=== PATIENT | female | born 1935 | race Caucasian/White ===

== ENCOUNTER 2019-02-07 15:17 | Inpatient (IN) | payer MEDICARE, MEDICAID ==
[~2019-02-07] VITALS: Ht 170.1 cm; Wt 72.6 kg
--- NOTE | ~2019-02-07 | EKG ---
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
--- NOTE | ~2019-02-07 | EKG ---
[place], [place] ELECTROCARDIOGRAM REPORT NAME: EVERT MITCHELL UNIT #: [id number] ROOM: 410 DOCTOR: KAM DRAFT REPORT BIRTHDATE: [birth year] [facility] Test Date: 2019-02-07 Test Time: 15:57:15 Pat Name: EVERT MITCHELL Department: Room: 410 Gender: F Roll Over Press Operator: : 1935 Requested By: GAURI GRIER Order Number: [id number] Reading MD: Aron Wright MD Measurements Intervals [place] Rate: 71 P: 27 SD: 184 QRS: -35 QRSD: 136 T: 56 QT: 459 QTc: 499 Interpretive Statements Sinus rhythm Nonspecific intraventricular conduction delay LAFB Electronically Signed On 02-08-2019 5:38:08 PDT by Aron Wright MD CM:EKGRPT:ELECTROCARDIOGRAM REPORT [id number] GAURI HUMPHREY DRAFT REPORT GAURI GRIER M.D.
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
[2019-02-07 15:20] VITALS: BP 169/89
[2019-02-07 16:00] LABS: BASO % 0.1 % (0.0-1.0); EOS # 0.1 10*3/uL (0.0-0.4); HEMATOCRIT 39.9 % (37.0-47.0); HEMOGLOBIN 13.3 g/dl (12.0-16.0); LYMPH # 2.2 10*3/uL (1.3-4.4); LYMPH % 25.7 % (27.0-41.0); MEAN CELL VOLUME 94.1 fl (81.0-99.0); MEAN CORPUSCULAR HGB 31.4 pg (27.0-31.0); MEAN CORPUSCULAR HGB CONC 33.3 g/dl (33.0-37.0); MEAN PLATELET VOLUME 8.9 fl (9.6-12.3); MONO # 0.8 10*3/uL (0.1-1.0); MONO % 8.6 % (3.0-9.0); NEUT # 5.6 10*3/uL (2.3-7.9); NEUT % 64.3 % (47.0-73.0); PLATELET COUNT AUTOMATED 242 10*3/uL (130-400); RED BLOOD COUNT 4.24 10*6/uL (4.10-5.10); RED CELL DISTRI WIDTH 12.9 % (0-14.5); WHITE BLOOD COUNT 8.7 10*3/uL (4.8-10.8)
[2019-02-07 16:18] LABS: ALBUMIN 3.3 gm/dl (3.1-4.5); ALKALINE PHOSPHATASE 76 U/L (45-117); BUN 13 mg/dl (7-24); CHLORIDE 103 mmol/L (98-107); CREATININE 0.69 mg/dL (0.55-1.02); POTASSIUM 4.2 mmol/L (3.5-5.1); SGOT/AST 7 IU/L (3-35); SGPT/ALT 14 U/L (12-78); SODIUM 136 mmol/L (136-145); TOTAL PROTEIN 6.9 gm/dL (6.4-8.2)
[2019-02-07 16:55] LABS: BILIRUBIN NEGATIVE (NEGATIVE); BLOOD TRACE-INTACT (NEGATIVE); CLARITY SL CLOUDY (CLEAR); COLOR YELLOW (YELLOW); GLUCOSE 2+ (NEGATIVE); KETONE NEGATIVE (NEGATIVE); LEUKO ESTERASE 2+ (NEGATIVE); NITRITE POSITIVE (NEGATIVE); SPECIFIC GRAVITY 1.015 (1.005-1.030); UROBILINOGEN 0.2 E.U./dl (0.2-1.0)
[2019-02-07 17:19] LABS: BACTERIA 2+; EPITHELIAL CELLS 0-2; RBC 0-2 rbc/hpf (0-2); WBC 51-100 wbc/hpf (0-5)
[2019-02-07 20:00] VITALS: BP 121/78
--- NOTE | 2019-02-07 20:06 | NUR ---
A 83, admitted to , under the services of KARLY Hadley DO with a diagnosis of UTI. Chief complaint is CHANGE IN MENTAL STATUS. Patient arrived via stretcher from ER. Monitor applied. Initial assessment completed. Vital signs taken and recorded. KARLY HADLEY DO notified of admission to the unit. Orders received. See assessment for past medical history, medications and allergies. Patient and/or family oriented to unit. [facility] visitation policy reviewed. Clothing/patient valuable form completed. NANCY GALLO
[2019-02-07 20:30] VITALS: BP 121/78
[2019-02-07] MEDS ORDERED: ASPIRIN ADULT L81 M1 PO (20:54)
[2019-02-07] MEDS ORDERED: ALENDRONATE SOD70 M1 PO (20:56)
[2019-02-07] MEDS ORDERED: METFORMIN HYDR500 MG PO (20:57)
[2019-02-07] MEDS ORDERED: Lopressor25 MG PO (20:57)
[2019-02-07] MEDS ORDERED: TRINTELLIX20 MG PO (21:00)
[2019-02-07] MEDS ORDERED: ZETIA10 MG PO (21:01)
[2019-02-07] MEDS ORDERED: EMERGEN-C 500500 MG PO (21:01)
--- NOTE | 2019-02-07 21:01 | NUR ---
[facility] AWARE OF CONSULT
[2019-02-07] MEDS ORDERED: RIVASTIGMINE T1.5 M1 PO (21:02)
[2019-02-07] MEDS ORDERED: KEPPRA500 MG PO (21:02)
[2019-02-07] MEDS ORDERED: HEALTHYLAX17 GM PO (21:03)
[2019-02-07] MEDS ORDERED: TYLENOL325 M1 PO (21:03)
[2019-02-07] MEDS ORDERED: ZANTAC 150150 MG PO (21:04)
[2019-02-07] MEDS ORDERED: HYDROXYZINE HCL25 MG PO (21:04)
--- NOTE | 2019-02-07 21:04 | NUR ---
DR FLOREZ'S ANSWERING SERVICE AWARE OF CONSULT
[2019-02-08] VITALS: BP 148/74
--- NOTE | 2019-02-08 02:23 | NUR ---
PATIENT PLACED IN RAFAL-CHAIR FOR MULTIPLE ATTEMPTS AT GETTING OUT OF BED
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
--- NOTE | 2019-02-08 04:10 | NUR ---
DR GIBBONS AWARE OF PATIENT'S INCREASED AGITATION. ORDERS FOR GEODON TAKEN
--- NOTE | 2019-02-08 06:06 | NUR ---
EVERT MITCHELL [id number] Please refer to the physician's history and physical for past medical history, comorbid conditions, and allergies. Diagnosis: UTI ABNORMAL EKG Ezequiel Score: 11,HIGH RISK WOUND DESCRIPTIONS: Wound Number: 1 Location of the wound: right posterior calf Thickness: Full Size: 1.1cm x 1.8cm x 0.1cm Tunneling: none Undermining: none Sinus Tract: none Presence of Exudate: Serosanguineous Amount: Light Color: Brown, yellow, red Odor: None Periwound Skin Appearance: Erythema Wound edges: approximated Pain (associated with wound): none at time of assessment How does patient state this happened? pt unable to state how this happened Surface the patient is resting on: Isoflex SKIN PREVENTION RECOMMENDATION: 1. Pressure redistribution support surface as appropriate 2. Elevate heels 3. Remove boots/TEDS every shift and reapply 4. Head of bed 30 degrees as tolerated 5. Assess nutrition and hydration 6. Manage moisture 7. Avoid the use of containment devices while in bed 8. Use absorptive products on surfaces limit layers of linens on bed 9. Turn and reposition every 1-2 hours in bed and every 1 hour in chair as tolerated 10. Weight shifts every 15 minutes while up in chair 11. Offloading with pillows or device to keep heels elevated off bed 12. Monitor skin at least every shift 13. Inspect under medical devices twice a day WOUND TREATMENT RECOMMENDATIONS: Venous and arterial studies of BLE's due to wound Consult podiatry for possible debridement if studies allow. Full thickness guidelines: Cleanse right posterior calf with nss and apply sureprep around the wound therahoney to wound bed and cover with optifoam gentle. Heel raiser pro boots to bilateral heels while in bed.
--- NOTE | 2019-02-08 06:09 | NUR ---
Upon discharge recommend patient to follow up for wound care in outpatient setting continue current wound care orders at discharging facility.
[2019-02-08 06:33] LABS: EOS # 0.1 10*3/uL (0.0-0.4); EOS % 0.9 % (1.0-4.0); HEMATOCRIT 39.8 % (37.0-47.0); HEMOGLOBIN 13.1 g/dl (12.0-16.0); LYMPH # 1.6 10*3/uL (1.3-4.4); LYMPH % 22.3 % (27.0-41.0); MEAN CELL VOLUME 94.3 fl (81.0-99.0); MEAN CORPUSCULAR HGB CONC 32.9 g/dl (33.0-37.0); MEAN PLATELET VOLUME 9.6 fl (9.6-12.3); MONO # 0.6 10*3/uL (0.1-1.0); MONO % 8.2 % (3.0-9.0); NEUT # 4.7 10*3/uL (2.3-7.9); NEUT % 68.3 % (47.0-73.0); PLATELET COUNT AUTOMATED 233 10*3/uL (130-400); RED BLOOD COUNT 4.22 10*6/uL (4.10-5.10); RED CELL DISTRI WIDTH 12.7 % (0-14.5); WHITE BLOOD COUNT 6.9 10*3/uL (4.8-10.8)
[2019-02-08 06:52] LABS: BUN 10 mg/dl (7-24); CHLORIDE 104 mmol/L (98-107); CREATININE 0.59 mg/dL (0.55-1.02); PHOSPHOROUS 2.9 mg/dL (2.5-4.9); POTASSIUM 3.6 mmol/L (3.5-5.1); SODIUM 139 mmol/L (136-145)
[2019-02-08 06:54] LABS: ACT PARTIAL THROMBO TIME 25.1 SECONDS (20.0-32.1)
--- NOTE | 2019-02-08 07:22 | NUR ---
Shift chart check completed.
[2019-02-08 08:00] VITALS: BP 136/70
--- NOTE | 2019-02-08 09:00 | NUR ---
case management visits with patient, patient is somewhat confused, per chart, she is a resident of [facility] and was admitted for medical clearance for U, case management/cyber intel planner will follow for any needs
--- NOTE | 2019-02-08 10:16 | NUR ---
Dr. Villegas notified of wound care recommendations.
[2019-02-08 12:00] VITALS: BP 149/59
--- NOTE | 2019-02-08 14:26 | NUR ---
Patient not appropriate at this time, 02/08/19, to be seen for an occupational therapy evaluation. Patient is drowsy per nursing. OT will follow up when appropriate. Thank you for the referral. Colleen Andrade OTR/L
--- NOTE | 2019-02-08 14:43 | NUR ---
PHYSICAL THERAPY Physical therapy evaluation attempted. Patient too drowsy to participate at this time. Nursing requests PT return at a later date. Thank you. Ami Griffiths,PT,DPT.
[2019-02-08 16:00] VITALS: BP 100/41
--- NOTE | 2019-02-08 18:09 | NUR ---
PT TO RADIOLOGY FOR ULTRASOUND
[2019-02-08 20:00] VITALS: BP 145/92
--- NOTE | 2019-02-08 22:47 | NUR ---
PATIENT IS SLEEPING WITH EASY AND REGULAR RESPERS ON ROOM AIR. AWAKENED EASILY FOR ASSESSMENT, ASSESSMENT IS COMPLETE WITH NO C/O OR S/S OF DISTRESS NOTED AT THIS TIME. BED IS LOW, LOCKED, ALARMED, AND CALL LIGHT IS WITHIN REACH. WILL CONTINUE TO MONITOR SEE SHIFT ASSESSMENT.
[2019-02-09] VITALS: BP 137/64
--- NOTE | 2019-02-09 03:51 | NUR ---
24 HR. CHART CHECK COMPLETE.
[2019-02-09 06:26] LABS: BUN 14 mg/dl (7-24); CHLORIDE 108 mmol/L (98-107); CREATININE 0.73 mg/dL (0.55-1.02); POTASSIUM 4.2 mmol/L (3.5-5.1); SODIUM 144 mmol/L (136-145)
[2019-02-09 06:32] LABS: EOS # 0.2 10*3/uL (0.0-0.4); EOS % 1.9 % (1.0-4.0); LYMPH # 2.4 10*3/uL (1.3-4.4); LYMPH % 29.7 % (27.0-41.0); MEAN CELL VOLUME 95.9 fl (81.0-99.0); MEAN CORPUSCULAR HGB 31.2 pg (27.0-31.0); MEAN CORPUSCULAR HGB CONC 32.5 g/dl (33.0-37.0); MEAN PLATELET VOLUME 9.7 fl (9.6-12.3); MONO # 0.6 10*3/uL (0.1-1.0); MONO % 7.8 % (3.0-9.0); NEUT # 4.8 10*3/uL (2.3-7.9); NEUT % 60.3 % (47.0-73.0); PLATELET COUNT AUTOMATED 240 10*3/uL (130-400); RED BLOOD COUNT 4.17 10*6/uL (4.10-5.10); RED CELL DISTRI WIDTH 13.2 % (0-14.5); WHITE BLOOD COUNT 7.9 10*3/uL (4.8-10.8)
--- NOTE | 2019-02-09 08:47 | NUR ---
Nikki WILDER notified of wound care recommendations.
--- NOTE | 2019-02-09 09:50 | NUR ---
Patient was seen for an occupational therapy evaluation this date, 02/09/19. Patient is a 83 y/o female admitted for UTI and change in mental status. Patient precautions include fall risk and decreased cognitive status. Patient to work on increasing ADLs, safety, cognition, and transfers. Patient would benefit from skilled OT treatment. Patient is a high eval- [id number]. OTR rec return to LTC with OT/PT services. Colleen Andrade, OTR/L
--- NOTE | 2019-02-09 09:51 | NUR ---
PHYSICAL THERAPY Physical therapy evaluation complete, 4E. Full evaluation/details to follow. Moderate evaluation (57278) per chart review and evaluation. PT to progress with bed mobility, sitting balance, and transfers per POC. Recommend return to long-term at discharge. Thank you. Ami Griffiths,PT,DPT.
--- NOTE | 2019-02-09 11:03 | NUR ---
Faxed updated clinicals to [facility] for review. Notified facility patient may not go to U if behaviors clear after UTI treatment. Patient is group home care and ok to return when medically stable for discharge.
--- NOTE | 2019-02-09 11:30 | NUR ---
Nutritional Support Services Note: Pt has a wound of back of right calf. Currently receiving an 1800cal diabetic diet with Glucerna po TID with meals. She is eating 100% of all meals. No other nutrition intervention needed at this time. Will follow. Jordyn Rosenthal Rdn Ld
[2019-02-09 12:00] VITALS: BP 131/74
[2019-02-09 16:00] VITALS: BP 130/72
[2019-02-09 16:02] LABS: VITAMIN D, 25-HYDROXY 26.5 ng/mL (30-100)
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
--- NOTE | 2019-02-09 19:40 | NUR ---
PHYSICIAN COMES TO FLOOR AND TALKS WITH PATIENT. PT STATES THAT SHE WOULD LIKE TO CALL HER SON RIO AND TALK TO HIM REGARDING HER HS MEDICATIONS. PT SON RIO IS CALLED BY NURSE AND TRANSFERRED TO PT PHONE IN ROOM. PT TALKS WITH SON AND AGITATION DECREASES AT THIS TIME. PT HS MEDICATIONS ARE EXPLAINED TO PT. PT STATES THAT SHE WILL TAKE HER MEDICATION NOW. WILL ATTEMPT TO MEDICATE PT. PT SITTING UP IN BED WITH NO S/S OF DISTRESS. RESPIRATIONS EASY AND UNLABORED. CALL LIGHT IN REACH.
[2019-02-09 20:00] VITALS: BP 157/65
--- NOTE | 2019-02-09 21:00 | NUR ---
PT AGREES TO TAKE HS MEDICATIONS BUT UPON TRYING TO TAKE MEDICATIONS, PT SPITS MEDICATIONS OUT ONTO FLOOR. PT STATES THAT SHE DOES NOT WANT TO TRY TO TAKE MEDICATIONS AGAIN AT THIS TIME. WILL ATTEMPT AT A DIFFERENT TIME. PT IS COOPERATIVE WITH STAFF AT THIS TIME AND HAS NO OTHER S/S OF DISTRESS. HOB ELEVATED. BREAKS LOCKED ON BED, CALL LIGHT IN REACH.
--- NOTE | 2019-02-09 22:30 | NUR ---
PT BLOOD SUGAR OBTAINED PER EMAR ORDER. BLOOD SUGAR IS 229. PT REQUIRES 3 UNITS COVERAGE BUT IS REFUSING INSULIN INJECTION AT THIS TIME. WILL CONTINUE TO MONITOR AND NOTIFY PHYSICIAN. CALL LIGHT IN REACH. PT RESTING IN BED
[2019-02-10] VITALS: BP 154/72
--- NOTE | 2019-02-10 06:29 | NUR ---
24 HR chart check completed.
[2019-02-10 08:58] VITALS: BP 122/84
--- NOTE | 2019-02-10 09:00 | NUR ---
SITTING UP IN CHAIR. DROWSY. ALERT TO PERSON ONLY. FINE RALES HEARD IN RIGHT POSTERIOR BASE. REMAINS ON ROOM AIR. MURMUR HEARD.
[2019-02-10 12:00] VITALS: BP 141/76
[2019-02-10 15:36] VITALS: BP 141/57
[2019-02-10 20:00] VITALS: BP 141/70
--- NOTE | 2019-02-10 22:30 | NUR ---
PT RESTING IN BED, EASILY AROUSED. ASSESSMENT COMPLETE AT THIS TIME. HS MEDICATIONS REFUSED BY PT AFTER SEVERAL ATTEMPTS. BLOOD SUGAR OBTAINED-256 AND COVERAGE GIVEN ORDERED, SEE EMAR. PT RESPIRATIONS EASY AND UNLABORED ON ROOM AIR. NO S/S OF DISTRESS. BP WNL. WILL CONITNUE TO MONITOR PT. ALL SAFETY MEASURES IN PLACE. CALL LIGHT IN REACH.
[2019-02-10 23:00] VITALS: BP 122/62
[2019-02-11] VITALS: BP 146/90
--- NOTE | 2019-02-11 04:18 | NUR ---
24 HR chart check completed.
[2019-02-11 08:00] VITALS: BP 161/64
--- NOTE | 2019-02-11 10:00 | NUR ---
[facility] NOTIFIED OF CONSULT
[2019-02-11 12:00] VITALS: BP 155/88
--- NOTE | 2019-02-11 13:00 | NUR ---
DR. ESPINOZA HERE TO SEE PATIENT ON CONSULT.
--- NOTE | 2019-02-11 15:00 | NUR ---
DR. FRANKLIN NOTIFIED THAT DR. ESPINOZA SAID THAT PATIENT CAN GO TO [facility] ONCE MEDICALLY STABLE.
[2019-02-11 16:00] VITALS: BP 146/58
[2019-02-11 20:00] VITALS: BP 144/66; BP 150/83
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
[2019-02-12] VITALS: BP 140/72
--- NOTE | 2019-02-12 03:44 | NUR ---
24 HR chart check completed.
[2019-02-12 06:41] LABS: BASO % 0.1 % (0.0-1.0); EOS # 0.1 10*3/uL (0.0-0.4); EOS % 1.5 % (1.0-4.0); HEMOGLOBIN 13.6 g/dl (12.0-16.0); LYMPH # 2.5 10*3/uL (1.3-4.4); LYMPH % 30.6 % (27.0-41.0); MEAN CELL VOLUME 96.1 fl (81.0-99.0); MEAN CORPUSCULAR HGB 31.1 pg (27.0-31.0); MEAN CORPUSCULAR HGB CONC 32.4 g/dl (33.0-37.0); MEAN PLATELET VOLUME 9.5 fl (9.6-12.3); MONO # 0.6 10*3/uL (0.1-1.0); MONO % 6.9 % (3.0-9.0); NEUT # 4.8 10*3/uL (2.3-7.9); NEUT % 60.5 % (47.0-73.0); PLATELET COUNT AUTOMATED 248 10*3/uL (130-400); RED BLOOD COUNT 4.37 10*6/uL (4.10-5.10); RED CELL DISTRI WIDTH 12.9 % (0-14.5)
[2019-02-12 06:53] LABS: CREATININE 0.66 mg/dL (0.55-1.02)
[2019-02-12 08:00] VITALS: BP 138/72
[2019-02-12] MEDS ORDERED: CEFUROXIME AXE500 MG PO (09:21)
--- NOTE | 2019-02-12 10:50 | NUR ---
PHYSICAL THERAPY Patient seen this am 1;1 for therapy visit and was resting supine in bed, with her present upon therapist arrival. Patient voices no c/o's pain and was very pleasant this morning. Patient transfers supine to sit EOB with MOD A, tolerating static EOB sit, CGA, x 5 minutes. Patient demonstrated increased fatigue which contributed to several bouts of retrograde posture prior to completing sit to stand transfer, CASINO CASHIER MANAGER/Min. Patient able to ambulate 5-6 steps, then performed SPT to bedside Rody chair and remained in chair with lap tray, call light, and body alarm for safety. Will continue per POC as tolerated, total treatment time 13 minutes. Thony Giles, FIBER WORKER
--- NOTE | 2019-02-12 11:09 | NUR ---
Notified Saumya garcia [employer] that patient is discharged to U.
--- NOTE | 2019-02-12 11:09 | NUR ---
Pt was seen for approx 15 minutes in OT beginning a with grooming task with set up while sitting at EOB with supervision. Fair minus sit balance noted. After grooming, sit to stand & transfer to mary-chair required Min A x 2. present during therapy session. Continue with OT POC. Alma SPANN
[2019-02-12 12:00] VITALS: BP 151/60
[2019-02-12] MEDS ORDERED: TYLENOL325 M1 PO (13:35)
--- NOTE | 2019-02-12 14:38 | NUR ---
DISCHARGED TO [facility] HERE.
--- NOTE | 2019-02-13 08:31 | NUR ---
OCCUPATIONAL THERAPY CO-SIGN I approve of the Occupational Therapy notes written above. ELLEN HENDRICKS OTR/Rachael
== END 2019-02-12 14:42 | disposition home health service (06) | DRG 690 ==
LOC: ED 15:17 → EDHOLD 19:03 → 4E 19:03
PROVIDERS: Emergency Medicine; Internal Medicine; Student in an Organized Health Care Education/Training Program; ADMIT Internal Medicine
DX: N39.0 Urinary tract infection, site not specified (principal); G93.49 Other encephalopathy; I25.810 Atherosclerosis of coronary artery bypass graft(s) without angina pectoris; F01.51 Vascular dementia, unspecified severity, with behavioral disturbance; G40.209 Localization-related (focal) (partial) symptomatic epilepsy and epileptic syndromes with complex partial seizures, not intractable, without status epilepticus; I45.2 Bifascicular block; I35.0 Nonrheumatic aortic (valve) stenosis; Z66 Do not resuscitate; Z51.5 Encounter for palliative care; D72.810 Lymphocytopenia; I10 Essential (primary) hypertension; E11.65 Type 2 diabetes mellitus with hyperglycemia; K59.00 Constipation, unspecified; M54.5 Low back pain; B96.20 Unspecified Escherichia coli [E. coli] as the cause of diseases classified elsewhere; G89.29 Other chronic pain; M48.00 Spinal stenosis, site unspecified; Z88.8 Allergy status to other drugs, medicaments and biological substances; Z91.040 Latex allergy status; I25.2 Old myocardial infarction; Z95.1 Presence of aortocoronary bypass graft; Z95.0 Presence of cardiac pacemaker; Z90.710 Acquired absence of both cervix and uterus; Z90.79 Acquired absence of other genital organ(s); Z90.722 Acquired absence of ovaries, bilateral; Z84.89 Family history of other specified conditions; Z79.82 Long term (current) use of aspirin; Z79.899 Other long term (current) drug therapy; Z79.84 Long term (current) use of oral hypoglycemic drugs

== ENCOUNTER 2019-02-12 09:44 | Inpatient (IN) | payer MEDICARE, MEDICAID ==
[~2019-02-12] VITALS: Ht 170.1 cm; Wt 68.0 kg
[~2019-02-12 09:44] MED LIST: ALENDRONATE SOD70 M1 PO; ASPIRIN ADULT L81 M1 PO; CEFUROXIME AXE500 MG PO; EMERGEN-C 500500 MG PO; HEALTHYLAX17 GM PO; HYDROXYZINE HCL25 MG PO; KEPPRA500 MG PO; Lopressor25 MG PO; METFORMIN HYDR500 MG PO; RIVASTIGMINE T1.5 M1 PO; TRINTELLIX20 MG PO; TYLENOL325 M1 PO; ZANTAC 150150 MG PO; ZETIA10 MG PO
[2019-02-12] MEDS ORDERED: TYLENOL325 M1 PO (13:35)
[2019-02-12 14:52] VITALS: BP 143/63
--- NOTE | 2019-02-12 15:07 | NUR ---
PHYSICAL THERAPY Nursing screen received and chart reviewed. Recommend continued skilled PT services when medically appropriate. Thank you. Ami Griffiths,PT,DPT.
[2019-02-12 15:53] VITALS: BP 143/63
--- NOTE | 2019-02-12 17:37 | NUR ---
EVERT MITCHELL a 83 year old F admitted via wheel chair from the ADMITTING as a voluntary admission. Arrived on unit at 1445. ALLERGIES: DEPAKOTE, LATEX, NAMENDA, ABCIXIMAB. Vital signs are: 97.2-65-14 143/63. The client signed consent for admission. Pt too tired to sign other paperwork. Will attempt at another time. Pt does not want to complete skin assessment at this time. Pt was medicated with vistaril prior to admission. [facility] A search was conducted and hazardous articles were removed. Client was oriented to the unit. KEN RHODES
[2019-02-12 20:00] VITALS: BP 128/86
--- NOTE | 2019-02-12 20:48 | NUR ---
DR GIBBONS NOTIFIED MEDICAL MEDS NEED REORDERED. WILL DO NOW.
--- NOTE | 2019-02-12 22:52 | NUR ---
P--CONFUSION/ DIFFICULTY PROCESSING REQUESTS I--ORIENTED TO PLACE AND TIME. REVIEWED MEDICATIONS AND WHAT THEY WHERE FOR. CLIENT INTERESTED AT FIRST THEN DEVELOOPED A GLAZED LOOK OF NON COMPREHENSION. MEDICATED PER ORDERS WITH MUCH ENCOURAGEMENT. DAYLIGHT ORDERED A SPEECH CONSULT DUE TO POOR SWOLLOWING ABILITY R--HI I AM EVERT. IT IS 1953 AND JEETSYLVIA IS PRESIDENT. OH ITS 2019. TOOK TWO SPOONFULD OF APPLSAUCE WITH MEDICATION BUT THE LAST 3 WERE VERY DIFFICULT FOR HER TO SWOLLOW. HOLDING IN HER MOUTH EVEN WITH INSTRUCTIONS TO SWOLLOW AND APPEARS SHE IS UNABLE TO COMPREHEND COMMANDS. SWOLLOWED AFTER A FEW MINUTES P-PASS ON TO MONITOR FOOD INTAKE. CONTINUE ORIENTATION, EMOTIONAL SUPPORT AND MONITOR FOR SAFETY
--- NOTE | 2019-02-13 04:45 | NUR ---
24 HR chart check completed.
--- NOTE | 2019-02-13 05:40 | NUR ---
COMPLETE SHOWER DONE. CLIENT SLEPT APPROX 8 HOURS MINIMAL INTERUPTION.
--- NOTE | 2019-02-13 05:41 | NUR ---
EVERT MITCHELL Ester [id number] Please refer to the physician's history and physical for past medical history, comorbid conditions, and allergies. Diagnosis: INTERMITTENT EXPLOSIVE DISORDER Ezequiel Score: 15,AT RISK WOUND DESCRIPTIONS: Wound Number: 1 Location of the wound: right posterior calf Thickness: Full Size: 1.1cm x 1.8cm x 0.1cm Tunneling: none Undermining: none Sinus Tract: none Presence of Exudate: none Amount: none Color: Brown, red Odor: None Periwound Skin Appearance: Erythema Wound edges: approximated Pain (associated with wound): none at time of assessment How does patient state this happened? pt unable to state how this happened Surface the patient is resting on: Proform SKIN PREVENTION RECOMMENDATION: 1. Pressure redistribution support surface as appropriate 2. Elevate heels 3. Remove boots/TEDS every shift and reapply 4. Head of bed 30 degrees as tolerated 5. Assess nutrition and hydration 6. Manage moisture 7. Avoid the use of containment devices while in bed 8. Use absorptive products on surfaces limit layers of linens on bed 9. Turn and reposition every 1-2 hours in bed and every 1 hour in chair as tolerated 10. Weight shifts every 15 minutes while up in chair 11. Offloading with pillows or device to keep heels elevated off bed 12. Monitor skin at least every shift 13. Inspect under medical devices twice a day WOUND TREATMENT RECOMMENDATIONS: May need vascular follow up due to results on 02/12/19. Continue full thickness guidelines to right posterior calf. Heel raiser pro boots while in bed to bilateral feet.
[2019-02-13 07:10] LABS: EOS # 0.2 10*3/uL (0.0-0.4); EOS % 2.3 % (1.0-4.0); HEMATOCRIT 44.7 % (37.0-47.0); HEMOGLOBIN 14.6 g/dl (12.0-16.0); LYMPH # 2.2 10*3/uL (1.3-4.4); LYMPH % 31.3 % (27.0-41.0); MEAN CELL VOLUME 95.9 fl (81.0-99.0); MEAN CORPUSCULAR HGB 31.3 pg (27.0-31.0); MEAN CORPUSCULAR HGB CONC 32.7 g/dl (33.0-37.0); MEAN PLATELET VOLUME 9.2 fl (9.6-12.3); MONO # 0.6 10*3/uL (0.1-1.0); MONO % 8.5 % (3.0-9.0); NEUT % 57.6 % (47.0-73.0); PLATELET COUNT AUTOMATED 258 10*3/uL (130-400); RED BLOOD COUNT 4.66 10*6/uL (4.10-5.10); WHITE BLOOD COUNT 6.9 10*3/uL (4.8-10.8)
[2019-02-13 07:55] VITALS: BP 149/60
--- NOTE | 2019-02-13 07:58 | NUR ---
PHYSICAL THERAPY CO-SIGN I approve of the Physical Therapy notes written above. CLOTILDE MYERS PT,DPT
--- NOTE | 2019-02-13 08:00 | NUR ---
Treatment Plan meeting with Dr. Oconnor, RN, AT, SW and Alpine Patroller. Plan for discharge next week. Pt. will return to [facility]. Clinical Updates faxed to [place].
[2019-02-13 08:06] LABS: VITAMIN D, 25-HYDROXY 21.6 ng/mL (30-100)
--- NOTE | 2019-02-13 08:44 | NUR ---
Nursing screen and occupational therapy referral received. Thank you. Leena Nguyễn OTR/L
--- NOTE | 2019-02-13 09:15 | NUR ---
SPEECH PATHOLOGY Clinical swallowing evaluation completed as per orders due to difficulty swallowing. Patient was transferred to [facility] from medical floor with intermittent explosive disorder. Medical history includes UTI, CAD, DM, HTN, NH, vascular dementia and complex partial seizure disorder. Patient receives a regular diet and thin liquids and has been observed holding foods and spitting out foods and medications. She was seen for assessment during breakfast meal. She was sitting upright in a chair in activity room with peers. Patient was alert and cooperative, answering simple questions appropriately. She fed herself and ate a variety of solid foods and liquids. She consumed 100% of breakfast and was asking for more food. She displayed no overt difficulty during the meal. Recommend she remain on present diet. Short term follow up will be conducted, likely one visit, to ensure safe tolerance of diet as status may be different throughout the day. Results and elsa. were shared with patient's nurse who verbalized understanding. Refer to report in [employer] for further information. Thank you for this referral. JULIO FOREMAN MSCCC-SAFETY AND SKILL BASED PAY MANAGER
--- NOTE | 2019-02-13 10:06 | NUR ---
Dr. Hansen notified of wound care recommendations.
[2019-02-13 10:28] LABS: ALBUMIN 3.4 gm/dl (3.1-4.5); ALKALINE PHOSPHATASE 73 U/L (45-117); BUN 13 mg/dl (7-24); CHLORIDE 105 mmol/L (98-107); CHOLESTEROL 184 mg/dL (<200); CREATININE 0.76 mg/dL (0.55-1.02); HDL CHOLESTEROL 62 mg/dl (40-60); LDL CHOLESTEROL 107 mg/dL (9-159); POTASSIUM 4.1 mmol/L (3.5-5.1); SGOT/AST 11 IU/L (3-35); SGPT/ALT 17 U/L (12-78); SODIUM 140 mmol/L (136-145); TOTAL PROTEIN 7.3 gm/dL (6.4-8.2); TRIGLYCERIDES 74 mg/dl (<150); VLDL CHOLESTEROL 15 mg/dL (6-40)
--- NOTE | 2019-02-13 11:46 | NUR ---
AM GROUP PT WAS PRESENT FOR MORNING GROUP THERAPY BUT DID NOT PARTICIPATE. PT WAS RECLINED IN A RAFAL CHAIR SLEEPING.
--- NOTE | 2019-02-13 14:32 | NUR ---
Nutritional Support Services Note: Pt has a wound noted to right calf. She receives an 1800cal diabetic diet with Glucerna OS po TID with meals. Staff to encourage intake of all meals and supplements. No other nutrition intervention needed at this time. Will follow as needed. Jordyn Rosenthal Rdn Ld
--- NOTE | 2019-02-13 15:23 | NUR ---
PHYSICAL THERAPY Physical therapy evaluation complete, 3N. Please see evaluation for full details. Moderate complexity evaluation (15905) per chart review and evaluation. PT to progress with bed mobility, transfers, gait per POC. Recommend return to nursing facility at discharge. Thank you. Ami Griffiths,PT,DPT.
--- NOTE | 2019-02-13 15:25 | NUR ---
Occupational Therapy evaluation completed on 3 with full eval to follow. PRecautions include fall risk, reclining mary chair use, impaired cognition with difficulty following complex commands and MMT instructions,assistance w/ all ADLs, +2 mod/max sit to stand assist, moderate complexity level 54420 via chart review, testing and evaluation. Recommend OT per pOC and return to LTC upon d/c. Thank you. Leena Nguyễn OTR/L
--- NOTE | 2019-02-13 15:39 | NUR ---
PM GROUP/LEISURE INTERESTS PT ATTENDED AFTERNOON GROUP THERAPY AND PARTICIPATED BY READING THE NEWSPAPER AND SOCIALIZING WITH PEERS. PT EXHIBITED NO AGITATION OR AGGRESSION DURING GROUP.
--- NOTE | 2019-02-13 17:31 | NUR ---
P: PT REFUSED PART OF AM PO MEDS, TOOK TWO BITES AND REFUSED THE REST. PT REFUSED LUNCH. PT IRRITABLE WITH STAFF AT TIMES. I: PROVIDE EMOTIONAL SUPPORT AND 1:1 FOR PT TO VOICE FEELINGS, ENCOURAGE MED COMPLIANCE, ENCOURAGE PO INTAKE R: PT CONTINUED TO REFUSE LUNCH AND PO AM MEDS. PT ALERT TO PERSON ONLY, THINKS SHE IS AT THE [facility] AND THE YEAR IS 1952. PT CALM, MOOD IS STABLE. NO HALLUCINATIONS NOTED. PT DENIES ANY SUICIDAL THOUGHTS. [facility] REQU[facility] 2 STAFF ASSIST FOR AMBULATION. PT CONTINENT OF BOWEL AND BLADDER, EPISODES OF INCONTINENCE NOTED, CARE PROVIDED NEEDED.
[2019-02-13 19:25] VITALS: BP 142/66
--- NOTE | 2019-02-13 21:27 | NUR ---
PT TOOK MEDICATION THEN SPIT IT ALL OVER HERSELF. SHE SAID YOU CAN'T FORCE ME TO TAKE THOSE MEDICATIONS. I INFORMED HER I WOULDN'T FORCE HER BUT SHE OPENED HER MOUTH AND TOOK THE PUDDING WITH MEDICATION. SHE SAID THAT IS CONSIDERED FORCE. SHE SAYS SHE DOESN'T WANT ANY MEDICINE ANYMORE.
--- NOTE | 2019-02-13 21:37 | NUR ---
TAKING TO HER ROOM TO GET READY FOR BED SHE IS DISROBING IN DININGROOM. REDIRECTED THAT THERE ARE OTHERS HERE AND SHE DOESN'T WANT THEM TO SEE HER NAKED. SHE REPLIED WELL WHAT IF I DO.
--- NOTE | 2019-02-13 22:08 | NUR ---
REFUSED ALL PM CARE INCLUDING ORAL CARE.
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
--- NOTE | 2019-02-14 00:28 | NUR ---
SLEEPING IN CHAIR. WRAPPED WITH BLANKET AND PILLOW UNDER HEAD, RESP EASY NON LABORED. MOVING SELF AROUND
--- NOTE | 2019-02-14 03:53 | NUR ---
Upon discharge recommend patient to follow up for wound care in outpatient setting continue current wound care orders at discharging facility.
--- NOTE | 2019-02-14 04:11 | NUR ---
HAS SLEPT WELL PAST 2355AM.
[2019-02-14 07:37] VITALS: BP 115/92
--- NOTE | 2019-02-14 10:00 | NUR ---
Treatment Plan meeting with RN, SW and Six Sigma Black Trainer. Plan for discharge Next week. Pt. will return to [facility].
--- NOTE | 2019-02-14 10:41 | NUR ---
Spoke with Saumya Souza at [facility]. Notified of plans to discharge next week. Clinical Updates faxed to Facility [phone].
--- NOTE | 2019-02-14 11:35 | NUR ---
2ND RN APPRAOCHED PT ROOM TO CHECK BLOOD SUGAR, NOTIFIFED THIS NURSE THAT PT WAS VOMITING AND LAYING FLAT ON HER BACK, THIS NURSE RESPONDED OBSERVED PT TO HAVE VOMITED YELLOW, FOUL SMELLING LIQUID. ASSISTED PT INTO SITTING POSITION WITH HOB ELEVATED. VS [id number], BS 163. ZULMA POSADAS ON UNIT AT 1143, TO ASSESS PT, PER ZULMA SHE WILL PLACE ORDERS. CALLED ZULMA AT 1148 ADVISED THAT PT IS CONTINUING TO VOMIT YELLOW FOULD SMELLING LIQUID. 1151 STAFF NOTIFIED THIS NURSE THAT PT HAD LARGE LOOSE BM.
--- NOTE | 2019-02-14 11:36 | NUR ---
AM GROUP/REMINISCING PT DID NOT ATTEND MORNING GROUP THERAPY. PT WAS IN BED RESTING.
--- NOTE | 2019-02-14 12:04 | NUR ---
UPDATED ZULMA HAYES ON PT HAVING MASSIVE WATERY BROWN BM. PER ZULMA GET A STOOL SAMPLE. NO FURTHER ORDERS AT THIS TIME.
--- NOTE | 2019-02-14 12:07 | NUR ---
LAB AND XRAY ON UNIT FOR PT.
--- NOTE | 2019-02-14 12:08 | NUR ---
EKG ON UNIT.
[2019-02-14 12:29] LABS: EOS # 0.1 10*3/uL (0.0-0.4); EOS % 1.3 % (1.0-4.0); HEMATOCRIT 43.5 % (37.0-47.0); HEMOGLOBIN 13.9 g/dl (12.0-16.0); LYMPH # 1.9 10*3/uL (1.3-4.4); MEAN CELL VOLUME 96.5 fl (81.0-99.0); MEAN CORPUSCULAR HGB 30.8 pg (27.0-31.0); MEAN PLATELET VOLUME 9.2 fl (9.6-12.3); MONO # 0.5 10*3/uL (0.1-1.0); MONO % 5.4 % (3.0-9.0); NEUT # 6.4 10*3/uL (2.3-7.9); PLATELET COUNT AUTOMATED 246 10*3/uL (130-400); RED BLOOD COUNT 4.51 10*6/uL (4.10-5.10); RED CELL DISTRI WIDTH 13.1 % (0-14.5); WHITE BLOOD COUNT 8.9 10*3/uL (4.8-10.8)
--- NOTE | 2019-02-14 12:29 | NUR ---
HENRRY INEFEFCTIVE, PT CONTINUES TO VOMIT.
--- NOTE | 2019-02-14 12:34 | NUR ---
ZULMA HAYES RETURNED CALLED, AWAITING LABS AND CHEST XRAY RESULTS AT THIS TIME.
[2019-02-14 12:39] LABS: ALBUMIN 3.5 gm/dl (3.1-4.5); ALKALINE PHOSPHATASE 70 U/L (45-117); BUN 14 mg/dl (7-24); CHLORIDE 105 mmol/L (98-107); CREATININE 0.64 mg/dL (0.55-1.02); POTASSIUM 4.1 mmol/L (3.5-5.1); SGOT/AST 15 IU/L (3-35); SGPT/ALT 19 U/L (12-78); SODIUM 138 mmol/L (136-145); TOTAL PROTEIN 7.2 gm/dL (6.4-8.2)
[2019-02-14 12:41] LABS: TROPONIN I < 0.015 ng/ml (<0.045)
--- NOTE | 2019-02-14 12:45 | NUR ---
UPDATED ZULMA WILDER ON CHEST XRAY RESULTS AND LAB RESULTS, NO FURTHER ORDERS AT THIS TIME, WILL RE-EVALUATE AND CONTINUE TO MONITOR.
--- NOTE | 2019-02-14 13:02 | NUR ---
OT NOTE Attempted to see pt this P.M. for OT session and upon arrival nursing requested to let pt rest at this time due to vomitting. Will continue with POC as able. DOM Spivey/Rachael
--- NOTE | 2019-02-14 13:08 | NUR ---
CALLED [facility] CELL PHONE NUMBERS, NO ANSWER, SPOKE WITH SARMAD JENKINS AT EXT 2020, HE WILL LET RT KNOW OF THE DUONED ORDER.
--- NOTE | 2019-02-14 13:21 | NUR ---
SPEECH PATHOLOGY Nursing requested to withhold treatment this date. Patient is ill and in bed. Will attempt again tomorrow as appropriate. JULIO FOREMAN MS CCC-CLIENT ADVOCATE
--- NOTE | 2019-02-14 13:35 | NUR ---
SARMAD JENKINS FROM [facility] ON UNIT FOR PT BREATHING TREATMENT.
[2019-02-14 14:12] VITALS: BP 133/80
--- NOTE | 2019-02-14 15:13 | NUR ---
case management received a call from [employer], inpatient u stay is approved 10 days with next review 02/21/19, approval number is [id number]
--- NOTE | 2019-02-14 15:20 | NUR ---
ZULMA HAYES ON UNIT TO ASSESS PT, UPDATE PROVIDED RE: RECENT TROPININ LEVELS. NO FURTHER ORDERS AT THIS TIME.
--- NOTE | 2019-02-14 15:35 | NUR ---
PM GROUP/LEISURE INTERESTS PT IS UNABLE TO ATTEND GROUP THERAPY AT THIS TIME.
--- NOTE | 2019-02-14 15:48 | NUR ---
NO ADVERSE MOODS OR BEHAVIORS NOTED THIS SHIFT. PT ALERT TO PERSON ONLY, CONFUSION AND SHORT TERM MEMORY DEFICITS NOTED PER PT BASELINE. PT CALM. NO FURTHER EMESIS OR DIARRHEA NOTED AT THIS TIME. PT MED COMPLIANT THIS AM WITH MINIMAL DIFFICULTY. PT UP TO A GERICHAIR. PT INCONTINENT OF BOWEL AND BLADDER. PLAN IS TO CONTINUE TO MONITOR PT BEHAVIORS ON Q15 MIN SAFETY CHECKS, ENCOURAGE MED COMPLIANCE, PROVIDE EMOTIONAL SUPPORT AND 1:1, MONITOR VITAL SIGNS [id number] PER ORDERS.
[2019-02-14 19:51] VITALS: BP 121/59
[2019-02-15 02:00] VITALS: BP 137/69
--- NOTE | 2019-02-15 03:33 | NUR ---
NO ADVERSE MOODS OR BEHAVIORS NOTED. MOOD HOPELESS/HELPLESS. PT ALERT TO PERSON ONLY, CONFUSED IN ALL OTHER AREAS. PT CALM, SLEEPING SINCE BEGINNING OF SHIFT, EASILY AROUSABLE DURING INTERACTIONS. NO FURTHER EMESIS OR DIARRHEA NOTED AT THIS TIME. PT MEDICATION NONCOMPLIANT DUE TO SLEEPING DURING HS PASS, UNABLE TO EDUCATE DUE TO COGNITION. PT UP TO A GERICHAIR, REPOSITIONED Q 2 HOURS.NO PHYSICAL COMPLAINTS VOICED. PT INCONTINENT OF BOWEL AND BLADDER. RESPIRATIONS EASY AND REGULAR ON ROOM AIR, BREATHING TREATMENTS CONTINUED ORDERED. PLAN IS TO CONTINUE TO MONITOR PT BEHAVIORS ON Q15 MIN SAFETY CHECKS, ENCOURAGE MED COMPLIANCE, PROVIDE EMOTIONAL SUPPORT AND 1:1, MONITOR VITAL SIGNS Q6 HOURS PER ORDERS.
--- NOTE | 2019-02-15 05:49 | NUR ---
24 HOUR CHART CHECK COMPLETED.
--- NOTE | 2019-02-15 05:56 | NUR ---
PATIENT OBSERVED ON Q 15 MIN CHECKS TO HAVE SLEPT APPROX 8 HOURS INTERRUPTED WITH MULTIPLE BRIEF AWAKENINGS NOTED. NO SIGNS OR SYMPTOMS OF DISTRESS NOTED.
--- NOTE | 2019-02-15 07:55 | NUR ---
OT NOTE Pt was seen this A.M. 1:1 for 20 minute OT session with nursing staff present for observation only. Upon arrival pt was sitting semi reclined in the mary chair in the dining room. Pt identified by name and on wristband. Pt's breakfast tray arrived which she was sat upright in the mary chair with lap tray in place. Pt required maxA for set up of tray due to being unable to cut her food and open containers. After set up pt completed self feeding using a fork and managed all cups with straws with SBA. Pt was left sitting upright in the mary chair in the dining room with body alarm on for safety, under U staff supervision, and with lap tray on. Continue with rec D/C plan to return to LTC. DOM Spivey/Rachael
[2019-02-15 08:02] VITALS: BP 143/76
--- NOTE | 2019-02-15 08:09 | NUR ---
SPEECH PATHOLOGY Patient was seen for treatment this am during breakfast meal. Patient was sitting upright in activity room with peers. She was feeding herself without difficulty. She displayed good use of safety precautions such as slow intake and small bites and sips. Patient displayed no overt difficulty with any item. Her intake was good. As she is tolerating regular diet, using strategies and recommended to remain on regular diet and thin liquid, continued dysphagia therapy is no longer warranted. Patient will be discharged at this time. Thank you for this referall. It has been a pleasure taking part in this patient's care. JULIO FOREMAN MSCCC-SALES OFFICE ADMINISTRATOR
--- NOTE | 2019-02-15 08:15 | NUR ---
Treatment Plan meeting held with Dr. Oconnor, RN, AT, SW and Sound Effects Person. Plan remains for discharge next week with return to [place].
--- NOTE | 2019-02-15 08:36 | NUR ---
Patient resting quietly with no c/o discomfort. Respirations easy and regular. Vital signs stable. No overt distress. PHIL YOUSSEF
--- NOTE | 2019-02-15 11:41 | NUR ---
Late Entry: Met with pt's and son yesterday during afternoon visitation. Pt was also present but was sleeping in the mary-chair. Discussed pt's current status. Answered questions from pt's family regarding course of care. Discussed progression of illness. Confirmed discharge plan of pt returning to [facility].
--- NOTE | 2019-02-15 11:43 | NUR ---
AM GROUP/LESSONS FROM A TREE PT WAS PRESENT FOR MORNING GROUP THERAPY HAVING JUST RETURNED FROM TESTING. PT DID NOT PARTICIPATE IN GROUP. PT WAS RECLINED IN A RAFAL CHAIR SLEEPING.
[2019-02-15 14:00] VITALS: BP 126/54
--- NOTE | 2019-02-15 15:38 | NUR ---
PM GROUP/TREES CONTINUED PT WAS PRESENT FOR AFTERNOON GROUP THERAPY BUT DID NOT PARTICIPATE. PT WAS RECLINED IN A RAFAL CHAIR AND SLEPT MOST OF THE TIME
[2019-02-16 02:00] VITALS: BP 110/62
--- NOTE | 2019-02-16 02:42 | NUR ---
P-PATIENT ALERT AND ORIENTED TO SELF, CONFUSED IN ALL OTHER AREAS. ST/LT DEFICITS NOTED. MOOD LABILE, HOPELESS/HELPLESS. PT CALM WITH UNDERLYING IRRITABILITY, REFUSED 2000 BP VITAL CHECK AND BSG AFTER X2 ATTEMPTS, GESTURES TOWARDS STAFF WITH FISTS AND STATES TO LEAVE HER ALONE. PT ALSO REFUSED HS MEDICATIONS AFTER X3 ATTEMPTS, PT SPIT THEM OUT IN HER BLANKET. PT'S APPEITTE CONTINUES TO BE POOR THIS SHIFT DESPITE ENCOURAGEMENT. I-PATIENT REORIENTED TO REALITY AND REDIRECTED. PROVIDED WITH 1:1 FOR VENTILATION OF FEELINGS WITH EMOTIONAL SUPPORT NEEDED. ENCOURAGED MEDICATION COMPLIANCE AND EDUCATED. REITERATED IMPORTANCE OF FLUID AND FOOD INTAKE AND CONTINUE TO ENCOURAGE PT. R- PATIENT UNRECEPTIVE TO THERAPUETIC INTERVENTIONS AND MEDICATION EDUCATION WHEN PRESENTED DUE TO COGNITION, ALL NEEDS ANTICIPATED BY STAFF, INCONTINENT CARE PROVIDED WITHOUT DIFFICULTY. FLUID AND FOOD INTAKE REMAINS POOR, PT STATED SHE DOES NOT WANT TO EAT OR DRINK ANYTHING BECAUSE SHE WILL GET FAT, UNABLE TO BE REDIRECTED. VITALS RECHECKED AT O200 ORDERED, NO COMBATIVE BEHAVIOR NOTED. NO PHYSICAL COMPLAINTS VOICED. PT CURRENTLY LAYING DOWN WITH EYES CLOSED, RESPIRATIONS EASY AND REGULAR, NO SIGNS OR SYMPTOMS OF DISTRESS NOTED. P-CONTINUE TO MONTIOR MOODS AND BEHAVIORS. PROVIDE 1:1 WITH EMOTIONAL SUPPORT. ENCOURAGE MEDICATION COMPLIANCE AND EDUCATE. ENCOURAGE FLUIDS AND FOOD INTAKE AND EDUCATE. PROVIDE REALITY ORIENTATION AND REDIRECTION NEEDED. MAINTAIN Q 15 MIN CHECKS.
--- NOTE | 2019-02-16 04:50 | NUR ---
24 HOUR CHART CHECK COMPLETED.
--- NOTE | 2019-02-16 06:11 | NUR ---
PATIENT OBSERVED ON Q 15 MIN CHECKS TO HAVE SLEPT APPROX 4 HOURS WITH MULTIPLE BRIEF AWAKENINGS NOTED THROUGHOUT THE NIGHT. NO SIGNS OR SYMPTOMS OF DISTRESS NOTED.
--- NOTE | 2019-02-16 07:20 | NUR ---
PHYSICAL THERAPY Patient seen this am for therapy visit and was sitting in activity room Rody chair upon therapist arrival. OT accounting manager assistant controller was present for observation only during LEGAL STENOGRAPHER visit as patient reports no new c/o's. Patient transfers sit to stand at rail, MOD A x 2, tolerating static stand < 1 minute x several trials. Patient demonstrates NBOS and needed v/c to improve upright posture. Patient also ambulated CERTIFIED APPLIANCE SERVICE TECHNICIAN/MIN, 20'x 1 to bathroom, demonstrating "scissor" gait pattern, decreased stride and POOR upright posture, followed by additinal gait 10'x 1 to Rody chair. Patient remained in activity room in her Rody chair semi reclined with body alarm and under BHU staff Supervision reclined, with body alarm under BHU staff Supervision. Will continue per POC as tolerated, total treatment time 17 minutes. Thony Giles, LEGAL STENOGRAPHER
--- NOTE | 2019-02-16 07:30 | NUR ---
OT NOTE Pt was seen this A.M. 1:1 for 15 minute OT session with SPRING UP SUPERVISOR and nursing staff present for observation only. Upon arrival pt was sitting upright in the mary chair in the dining room. Pt identified by name and and had no complaints at this time. Pt was taken out into the hallway where she completed multiple sit to stand transfers from chair level with Nathaniel and use of hand rail for UE support. Challenged pt's static standing tolerance needed for increased I in self care tasks and functional transfers. Pt was able to tolerate aprox 60 seconds at a time before sitting due to fatigue. Functional mobility completed into the bathroom with Nathaniel SLICE PLUG CUTTER OPERATOR there she transferred on/off standard commode with Nathaniel and use of grab bar for UE support. Functional mobility completed back to the mary chair. Throughout all transfers and mobility pt required max verbal prompts keeping a wider base of support, pt had poor carry over throughout. Pt was left sitting upright in the mary chair in the dining room with body alarm on for safety, lap tray in place, and under [facility] staff supervision. Continue with rec D/C plan to return to LTC. DOM Spivey/Rachael
[2019-02-16 07:42] VITALS: BP 133/69
--- NOTE | 2019-02-16 08:00 | NUR ---
Treatment Plan meeting with Dr. Oconnor, RN, AT, SW and Neurosurgery Physician. Plan for discharge Next week. Pt. will return to [facility]. Clinical Updates faxed to facility. Spoke with Saumya Souza from [facility] and notified her of discharge plans.
--- NOTE | 2019-02-16 08:00 | NUR ---
Patient resting quietly with no c/o discomfort. Respirations easy and regular. Vital signs stable. No overt distress. PHIL YOUSSEF
--- NOTE | 2019-02-16 11:50 | NUR ---
AM GROUP PT WAS PRESENT FOR MORNING GROUP THERAPY RECLINED IN A RAFAL CHAIR SLEEPING. PT AWOKE AND QUIETLY OBSERVED THE GROUP. PT WAS SET UPRIGHT AND BROUGHT TO THE TABLE WITH PEERS AND STATED, "I CAN'T STAY HERE, I NEED TO GO TO SEE MY MOTHER" PT WAS EASILY REDIRECTED AND EXHIBITED NO AGIATION OR AGGRESSION.
--- NOTE | 2019-02-16 14:57 | NUR ---
PT HAS DISPLAYED NO ADVERSE MOOD OR BEHAVIORS THIS SHIFT. PT IS CONFUSED. ORIENTED TO PERSON ONLY. PT CAN APPROPRIATELY RESPOND TO VERBAL CUES WITH BRIEF ANSWERS, ST/LT MEMORY DEFICITS APPARENT. PT STATES SHE "HAD A GOOD NIGHT AND A GOOD DAY, AND NOW SHE IS GOING DOWNSTAIRS". PT REDIRECTED AND ADVISED THAT THIS UNIT IS ONLY ONE LEVEL, PT STATES "OH, WHERE ARE WE?" PT PROVIDED WITH REORIENTATION APPROPRIATE. PROVIDED WITH 1:1 AND LOW STIMULATION. MEDICATION COMPLIANT WITHOUT DIFFICULTY. PT APPETITE HAS IMPROVED FROM YESTERDAY'S ASSESSMENT. WILL CONTINUE TO MONITOR APPETITE AND SLEEP QUALITY. WILL CONTINUE TO PROVIDE REORIENTATION APPROPRIATE. Q15 MIN MONITORING FOR SAFETY.
--- NOTE | 2019-02-16 15:39 | NUR ---
PM GROUP/MANICURES AND MUSIC PT WAS PRESENT FOR AFTERNOON GROUP THERAPY RECLINED IN A RAFAL CHAIR SLEEPING. PT DID NOT WAKE DURING GROUP
[2019-02-16 20:16] VITALS: BP 130/68
--- NOTE | 2019-02-17 | NUR ---
PT NON COMPLIANT WITH MEDICATION PASS, PT SPIT MEDICATIONS OUT, ALL OVER CLOTHING, AFTER PT HAD SWISHED MEDICATIONS IN MOUTH, REFUSING TO SWALLOW. SHE DID ATTEMPT TO SWAT AT STAFF WHILE REDIRECTING PT TO SWALLOW. UNABLE TO REDIRECT. PT DID FALL ASLEEP SHORTLY AFTER 2100 MEDICATION PASS. WOULD NOT SPEAK TO NURSE. NO SI/HI OR DELUSIONS NOTED
--- NOTE | 2019-02-17 05:17 | NUR ---
24 HR chart check completed.
--- NOTE | 2019-02-17 05:18 | NUR ---
7+ HOURS OF SLEEP
[2019-02-17 07:35] VITALS: BP 132/65
--- NOTE | 2019-02-17 09:54 | NUR ---
PT NON- COMPLIANT WITH MEDICATION ADMINISTRATION, ATTEMPTED TO ADMINISTER RISPERDAL M-TAB, PT PROCEEDED TO SWISH HER MOUTH WITH ORANGE JUICE AND SPIT IT OUT IN A BLANKET ON HER LAP, UNABLE TO REDIRECT AT THIS TIME. PT ALSO OFFERED MEDICATIONS IN CHOCOLATE PUDDING IN WHICH SHE ALSO SWISHED AND SWALLED QUANTITY. CONTINUE TO ENCOURAGE MEDICATIONS AT THIS TIME. PT IS NOTED TO BE TALKING TO HER SELF OR UNSEEN OTHERS AT THIS TIME.
--- NOTE | 2019-02-17 11:54 | NUR ---
AM GROUP/EXERCISES/AROMATHERAPY/BINGO PT ATTENDED GROUP AND PARTICIPATED THROUGH OBSERVATION. AT TIMES PT EXPRESSIVE OF WANTING TO LEAVE UNIT. PT REDIRECTION UTILIZED. PT ALSO EXPRESS "THAT MINT SMELL YOU HAVE IN THE ROOM SMELLS VERY NICE" PT WILL CONTINUE TO BE ENCOURAGED TO ATTEND AND PARTICIPATE TO THE BEST OF PT ABILITY IN FUTURE GROUP SESSIONS.
--- NOTE | 2019-02-17 13:41 | NUR ---
DR PALACIOS UPDATED ABOUT PATIENT LG EMESIS X2 . EMESIS WITH THICK PHLEGM MIXED WITH BROWN LIQUID AND FOOD CHUNCKS THROUGHOUT AND WITH STRONG VANILLA ODOR. PATIENT STATES "I THINK IT WAS THE GLUCERNA I DRANK. IT DID NOT AGREE WITH ME". PATIENT SITTING UP AT THIS TIME. +BOWEL SOUNDS X 4 QUADRANTS. LUNGS DIMINISHED IN BILATERAL BASES. NO NEW ORDERS GIVEN AT THIS TIME.
[2019-02-17 13:46] VITALS: BP 164/78
--- NOTE | 2019-02-17 14:53 | NUR ---
P-CONFUSION. PATIENT ALERT WITH CONFUSION. PATIENT WITH SHORT TERM AND DETENTION MEMORY DEFICITS. PATIENT WITH NO RESPIRATORY DISTRESS. PATIENT WITH NO HALLUCINATIONS OR DELUSIONS. PATIENT DENIES SUICIDAL OR HOMICIDAL IDEATIONS. I-REDIRECTION WITH 1:1 THERAPEUTIC INTERVENTIONS AND PRESENT REALITY. EDUCATE AND ENCOURAGE MEDICATION COMPLIANCE. R-PATIENT MEDICATION COMPLIANT WITH SOME OF AM MEDICATIONS WITH CUEING. PATIENT ISOLATIVE IN DINING AREA AROUND PEERS. PATIENT TALKING TO NURSE WITH SOFT VOICE. PATIENT ABLE TO MAKE NEEDS KNOWN. P-CONTINUE TO ENCOURAGE MEDICATION, CONTINUE TO PRESENT REALITY, ENCOURAGE GROUP THERAPY WHILE AWAKE
--- NOTE | 2019-02-17 15:21 | NUR ---
Shift chart check completed.
--- NOTE | 2019-02-17 15:57 | NUR ---
PM GROUP/DISCUSSION/HUMOR PT UNABLE TO ATTEND DUE TO NOT FEELING WELL PRIOR TO GROUP.
[2019-02-17 20:00] VITALS: BP 130/68
--- NOTE | 2019-02-17 20:19 | NUR ---
C/O BEING NAUSEATED AND THROWING UP TODAY. OFFERED GINGERALE WHICH SHE TOOK. REFUSING SNACKS AND MEDICATION. WILL CONTINUE TO MONITOR
--- NOTE | 2019-02-17 20:52 | NUR ---
STATES SHABNAM-CINDY HELPED SO MUCH BUT REFUSES SNACK AND MEDICATIONS. STATES SHE WANTS TO WAIT TILL TOMORROW.
--- NOTE | 2019-02-18 00:17 | NUR ---
24 HR chart check completed.
--- NOTE | 2019-02-18 02:20 | NUR ---
ATIVAN GIVEN CLIENT IS YELLING OUT FOR RIO, LOOKING FOR , CLIMBING OUT OF BED AND CHAIR. HITTING AT STAFF. UNCONSOLABLE WITH OTHER NONPHARMACEUTICALS. ATIVAN PO NOT ATTEMPTED SHE HAS NOT TAKEN ANY MEDICATION BY MOUTH FOR DAYS. MILIEUS IN WITH CLIENT. WILL MONITOR
--- NOTE | 2019-02-18 03:55 | NUR ---
APPEARS ATIVAN EFFECTIVE. NOT YELLING MUCH OR CLIMBING
--- NOTE | 2019-02-18 06:17 | NUR ---
REFUSING BSG. STATES YOU GUYS HAVE RUINED MY HANDS, LEAVE ME ALONE.
--- NOTE | 2019-02-18 06:28 | NUR ---
SLEPT POOR ALL NIGHT. APPROX 2 HOURS
[2019-02-18 07:04] VITALS: BP 136/88
--- NOTE | 2019-02-18 07:42 | NUR ---
PT RESTING QUIETLY WITH EYES CLOSED. RESPS EASY AND EVEN ON ROOM AIR. AROUSABLE VIA VERBAL/TACTILE STIMULI. NO DISTRESS NOTED.
--- NOTE | 2019-02-18 08:30 | NUR ---
STARR RN INTERVENTIONAL ON UNIT TO SEE PT AT THIS TIME. UPDATE GIVEN.
--- NOTE | 2019-02-18 12:00 | NUR ---
ON UNIT TO SEE PT AT THIS TIME. MADE AWARE PT FREQUENTLY REFUSING MEDS INCLUDING KEPPRA. POCKETS FOOD AND MEDS AT TIMES AND THEN SPITS OUT. MADE AWARE PT HAD SPEECH CONSULT AFTER ADMISSION FROM MEDICAL FLOOR D/T SAME BEHAVIOR. NNO RECIEVED AT THIS TIME.
--- NOTE | 2019-02-18 14:19 | NUR ---
P- NAPPING INTERMITTENTLY. EASILY AROUSABLE VIA VERBAL/TACTILE STIMULI. CONFUSED. NO AGGRESSIVE/COMBATIVE BEHAVIORS. REFUSED LUNCH, HELD FOOD/FLUID IN MOUTH, SWISHED AROUND AND SPIT OUT. I- ORIENTATION, MOOD AND BEHAVIOR ASSESSED. ASSESSED PT FOR SI/HI, INTENT OR PLAN. ASSESSED PT FOR S/S HALLUCINATIONS, PARANOIA AND/OR DELUSIONS. MEDICATIONS ADMINISTERED PER PHYSICIAN'S ORDERS. ASSISTANCE WITH ADL CARE PROVIDED NEEDED. ENCOURAGED PT TO ATTEND AND PARTICIPATE IN WISE MILIEU GROUPS AND ACTIVITIES. R- PT IS ALERT AND ORIENTED TO SELF ONLY, CONFUSION NOTED IN OTHER AREAS. MEMORY GAPS NOTED. RESPS EASY AND EVEN ON ROOM AIR. MOOD APPEARS STABLE. AFFECT FLAT. PT NAPPING INTERMITTENTLY T/O SHIFT, EASILY AROUSABLE VIA VERBAL/TACTILE SITMULI. PLEASANT WITH STAFF. PT DENIES SI/HI, INTENT OR PLAN. PT DENIES HALLUCINATIONS, NO RESPONSE TO INTERNAL STIMULI NOTED. AM MEDS HELD D/T PT SLEEPING. PT REFUSED PM MEDICATIONS AND LUNCH, PT HOLDING FOOD/FLUIDS IN MOUTH, SWISHING AROUND THEN SPITTING OUT. PT'S STATES THIS BEHAVIOR HAS BEEN ONGOING FOR PT. NO AGGRESSIVE OR COMBATIVE BEHAVIORS THIS SHIFT. NO DISTRESS NOTED. P- PLAN TO CONTINUE CURRENT TREATMENT, CONTINUE TO MONITOR MOOD AND BEHAVIORS, PROVIDE APPROPRIATE REORIENTATION, REDIRECTION AND 1:1 NEEDED. CONTINUE TO ENCOURAGE MEDICATION COMPLIANCE WELL GROUP ATTENDANCE AND PARTICIPATION.
--- NOTE | 2019-02-18 19:52 | NUR ---
P--CONFUSION/ NONCOMPLIANCE WITH MEDICATION I--STAFF ATTEMPTING TO FEED SNACK TO CLIENT. REORIENTATION PROVIDED WITHOUT SUCCESS. REFUSES 1:1 WITH ANY STAFF MEMBER. EMOTIONAL SUPPORT PROVIDED. MEDICATION EDUCATION PROVIDED R--CLIENT SPIT OUT SNACK. STATES I CAN'T EAT THAT STUFF. WON'T SAY WHAT SHE WILL EAT. MOVING ALL EXTREMETIES. AGGRESSIVE WITH ALL HOC FROM STAFF P--CONTINUE REORIENTATION. EMOTIONAL SUPPORT. MONITOR FOR SAFETY AND CHANGE IN BEHAVIORS
[2019-02-18 19:58] VITALS: BP 130/87
--- NOTE | 2019-02-18 20:09 | NUR ---
SPOKE WITH DR VINCENT. OK TO COVER CLIENT WITH 6 UNITS INSULIN EVEN WITH POOR APPETITE.
--- NOTE | 2019-02-18 21:39 | NUR ---
REFUSED SNACK AND MEDICATIONS. SPIT OUT ANYTHING GIVEN TO HER. MOVING SELF IN CHAIR. COMBATIVE WITH HANDS ON CARE. FELL ASLEEP IN CHAIR THEN PLACED IN BED. MONITOR ALARMS ON. WILL MONITOR FOR SAFETY AND CHANGES IN MOOD OR BEHAVIOR
--- NOTE | 2019-02-18 22:17 | NUR ---
TRIED THICKENING PRUNE JUICE CLIENT WON'T TAKE ANYTHING BY MOUTH AND HER BOWELS HAVENT MOVED SINCE 02/15/19. WILL PASS ON
--- NOTE | 2019-02-19 04:15 | NUR ---
24 HR chart check completed.
--- NOTE | 2019-02-19 06:18 | NUR ---
SLEPT 8 HOURS. MOVES SELF AROUND IN BED.
--- NOTE | 2019-02-19 07:05 | NUR ---
PHYSICAL THERAPY Patient seen this am for therapy visit and was sitting semi reclined in activity room Rody chair upon therapist arrival. OT social research assistant was present for observation only during SECRET SERVICE AGENT treatment as patient reports no c/o's pain. Patient was very pleasant this morning transfering sit to stand at rail with MIN A x several attempts, tolerating 1-2 minutes static stand each trial. Patient ambulates ENGRAVER SET UP OPERATOR/MIN with single handrail support, 20'x 1, demosntrating "scissoring" gait pattern, decreased stride and Poor upright posture. Patient also able to take 5-6 steps backwards without LOB and returned to Rody chair in activity room with body alarm. Patient remained under U staff Supervision and will continue per POC as tolerted, total treatment time 16 minutes. Thony Giles, SECRET SERVICE AGENT
--- NOTE | 2019-02-19 07:25 | NUR ---
OT NOTE Pt was seen this A.M. 1:1 for 25 minute OT session with PUBLIC INFORMATION RELATIONS MANAGER and nursing staff present for observation only. Upon arrival pt was sitting upright in the mary chair in the dining room. Pt identified by name and and had no complaints at this time. Pt was taken out into the hallway where she completed multiple sit to stand transfers from chair level with Nathaniel and use of hand rail for UE support. Challenged pt's static standing tolerance needed for increased I in self care tasks and functional transfers. Pt was able to tolerate aprox 2 minutes at a time before sitting due to fatigue. Pt was taken back into the dining room where she sat the table upright in her mary chair. Pt's breakfast tray arrived which she required maxA for set up of tray. When tray was first given to the pt she initally attempted to eat with the knife. Corrected pt and placed the fork in her hand and was then able to complete self feeding with supervision. Pt was left sitting upright in the dining room in her mary chair with body alarm on for safety and under [facility] staff supervision. Continue with rec D/C plan to return to LTC. DOM Spivey/Rachael
--- NOTE | 2019-02-19 08:00 | NUR ---
Treatment Plan meeting with Dr. Oconnor, RN, AT, SW and Occupational Analyst. Plan for discharge at the end of the week with return to [facility].
[2019-02-19 08:04] VITALS: BP 139/75
--- NOTE | 2019-02-19 08:07 | NUR ---
PT AWAKE AND ALERT. FEEDING SELF BREAKFAST IN DINING ROOM WITH PEERS. RESPS EASY AND EVEN ON ROOM AIR. NO DISTRESS NOTED.
--- NOTE | 2019-02-19 08:15 | NUR ---
ON UNIT TO SEE PT AT THIS TIME. GAVE ORDER TO HAVE SPEECH REEVAL PT PT CONTINUES TO POCKET FOOD/LIQUIDS AT TIMES.
--- NOTE | 2019-02-19 12:58 | NUR ---
SPEECH PATHOLOGY Clinical swallowing evaluation completed as per orders. Patient has been pocketing foods, holding liquids and spitting out food/liquid. Patient is known to this dept. as she was seen last week, after experiencing the same problems. When seen during therapy, she displayed no oral or pharyngeal swallowing difficulty and therapy had been discontinued. Reports indicate that patient has currently been refusing and spitting out medications, refusing and holding/pocketing meals and having bowel issues with no bowel movements over several days. Assessment was conducted during lunchtime meal. Patient was alert, sitting upright in chair in room with peers. Patient was cooperative during the encounter and able to self feed. Patient displayed no overt difficulty at this time. She swallowed food and liquid in a timely manner and there were no instances of holding/pocketing or spitting out food. Recommend patient remain on present diet. Recommend she is monitored at mealtime to ensure safe tolerance and use of universal safe swallow precautions. Recommend cues to swallow as needed and giving patient smooth foods that are easier to swallow during times when she is holding/pocketing food. Reports state that patient is now receiving some medications mixed with liquids, to improve her compliance with them and this has reportedly been effective. Follow up dysphagia therapy is recommended to ensure safe tolerance of meals through education and use of safety strategies. Results and elsa. were shared with patient's nurse who verbalized understanding. Refer to report in [email or web address] for further information. Thank you for this referral. JULIO FOREMAN MSCCC-PRINTING PRESS MACHINIST
--- NOTE | 2019-02-19 14:18 | NUR ---
Spoke with Saumya Souza at [facility]. Advised of plans to discharge at the end of the week. Clinical Updates faxed to Facility.
--- NOTE | 2019-02-19 14:32 | NUR ---
ON UNIT TO SEE PT AT THIS TIME. MADE AWARE PT WITHOUT A DOCUMENTED BM X4 DAYS OF TODAY. MADE AWARE PT DID RECIEVE MIRALAX THIS AM. WILL CONT TO MONITOR FOR EFFECTIVENESS. NNO RECIEVED AT THIS TIME.
--- NOTE | 2019-02-19 17:04 | NUR ---
PM GROUP/MUSIC/ART PT ATTENDED BUT DID NOT PARTICIPATE DUE TO SLEEPING ON AND OFF IN RECLINER. PT DID NOT EXPRESS ANY ANXIETY OR ANGER WHEN AWAKE. PT WILL CONTINUE TO ATTEND AND BE ENCOURAGED TO PARTICIPATE TO BEST OF PT ABILITY.
--- NOTE | 2019-02-19 17:30 | NUR ---
P- MEDICATION NONCOMPLIANCE. CONTINUES TO POCKET FOOD/FLUIDS AT TIMES. NO AGGRESSIVE BEHAVIORS THIS SHIFT. I- ORIENTATION, MOOD AND BEHAVIOR ASSESSED. ASSESSED PT FOR SI/HI, INTENT OR PLAN. ASSESSED PT FOR S/S HALLUCINATIONS, PARANOIA AND/OR DELUSIONS. MEDICATIONS ADMINISTERED PER PHYSICIAN'S ORDERS. ASSISTANCE WITH ADL CARE PROVIDED NEEDED. ENCOURAGED PT TO ATTEND AND PARTICIPATE IN WISE MILIEU GROUPS AND ACTIVITIES. R- PT IS ALERT AND ORIENTED TO NAME ONLY. CONFUSED IN ALL OTHER AREAS. MEMORY GAPS NOTED. RESPS EASY AND EVEN ON ROOM AIR. MOOD APPEARS STABLE WITH FLAT AFFECT. SPEECH IS SOFT, ABLE TO ANSWER SIMPLE QUESTIONS. PT DENIES SI/HI, INTENT OR PLAN. PT DENIES HALLUCINATIONS, NO RESPONSE TO INTERNAL STIMULI NOTED. NO PARANOIA OR DELUSIONS NOTED. PT REMAINS NONCOMPLIANT WITH MEDICATIONS AT TIMES. TOOK AM DOSE OF KEPPRA WITH MUCH ENCOURAGEMENT. PT CONTINUES TO POCKET FOOD/FLUIDS AT TIMES. SPEECH THERAPIST FOLLOWING PT. NO AGGRESSIVE BEHAVIORS NOTED. NO DISTRESS NOTED. P- PLAN TO CONTINUE CURRENT TREATMENT, CONTINUE TO MONITOR MOOD AND BEHAVIORS, PROVIDE APPROPRIATE REORIENTATION, REDIRECTION AND 1:1 NEEDED. ENCOURAGE MEDICATION COMPLIANCE WELL GROUP ATTENDANCE AND PARTICIPATION.
--- NOTE | 2019-02-19 19:45 | NUR ---
PT YELLING OUT "HELP ME I HAVE A BABY IN MY BELLY" PT GIVEN REDIRECTION BY STAFF, TAKEN TO HER ROOM FOR HOC. PT CALMED LAYING IN BED AT THIS TIME
[2019-02-19 20:00] VITALS: BP 136/76
--- NOTE | 2019-02-19 20:52 | NUR ---
EVENING/RELAXTION/POSITIVE QUOTES PT ATTENDED FIRST FEW MINUTES OF GROUP AND ASKED THIS STAFF "ARE YOU TRYING TO KILL ME? I FEEL LIKE YOU ARE TRYING TO KILL ME AND EVERYONE IN THIS ROOM" THIS STAFF ASSURED PT THAT5 THIS STAFF WILL NOT KILL HER OR ANYONE THAT WE ARE JUST DOING ACTIVITIES. PT THEN ASKED TO LEAVE THE ROOM. PT DID NOT RETURN TO GROUP. PT WILL CONTINUE TO BE ENCOURAGED TO ATTEND AN DPARTICIPATE TO BEST OF PT ABILITY.
--- NOTE | 2019-02-19 21:45 | NUR ---
PT RESISTIVE WITH MEDICATIONS, PRESENTED KEPPRA IN SMALL AMOUNT OF PUDDING, PT DID SWALLOW WITH PROMPTING. ATTEMPTED TO GIVE HER CEFTIN IN WHICH SHE TOOK HALF OF IT AND SPIT OUT THE OTHER HALF. PT DIFFICULT TO REDIRECT, CONTINUE TO REAPPROACH NEEDED. PT REFUSED ALL OTHER MEDICATIONS. PT DID ATTEMPT TO STRIKE OUT AT STAFF WHILE GIVING HOC, STATING "I CAN DO WHAT I WANT TO DO" UNABLE TO REDIRECT.
--- NOTE | 2019-02-20 01:04 | NUR ---
PT SLEEPING QUIETLY AT THIS TIME.
--- NOTE | 2019-02-20 03:07 | NUR ---
P: ST/LT MEMORY DEFICIT, INTERMITTENT EXPLOSIVE DISORDER, COMBATIVE, NON COMPIANT WITH MEDICATIONS, POOR INTAKE OF FOODS AND FLUIDS I: REAPPROACH FREQUENTLY WITH MEDICATIONS AND FOODS TO ENCOURAGE COMPLIANCE, EXPLAIN STEPS IN CARE TO PT TO ATTEMPT TO MAINTAIN CALM NON COMBATIVE BEHAVIORS DURING HOC AND INTERACTIONS, ATTEMPT TO EXPLAIN IMPORTANCE OF MEDICATIONS R: PT CONTINUES TO POUCH LIQUIDS AND SOLIDS AND SWISH IT IN HER MOUTH AND SPIT IT OUT. PT WILL SPIT IT IN BLANKETS, ON HER SHIRT AND AT STAFF, WHILE BRUSHING PT TEETH SHE ATTEMPTED TO POKE AND "SLASH" AT STAFF WITH TOOTH BRUSH. PT REMAINS NON COMPLIANT AND UNABLE TO REDIRECT P: CONTINUE TO GET MEDICATIONS AND FOOD INTAKE TO INCREASE IN CONSISTENCY. NO SI NOTED, PT DOES STATES SHE WANT'ST STAFF TO , WILL TALK TO HERSELF OR UNSEEN OTHERS AT TIMES AND YELL OUT. PT HAS BEEN LYING IN BED WITH EYES OPEN STARING INTO THE HALLWAY THROUGHOUT THE NIGHT.
--- NOTE | 2019-02-20 07:20 | NUR ---
PHYSICAL THERAPY Patient seen this am for therapy visit and was semi reclined in activity room Rody chair upon therapist arrival. OT offset assistant press operator was present for observation only during SPAR CAP BEVELER treatment as patient reports no c/o's pain at this time. Patient was pleasant this morning but a little tired since awakening and introduced to wh walker this session for gait training. Patient transfers sit to stand with MIN A and ambulated 20'x 2, Min A, use of wh walker, demonstrating narrow base of support and decreased stride. Patient needed v/c to keep feet apart while taking BIG steps and was able to slightly improve flakita. Patient also demonstrated improved upright posture and standing balance with use of walker versus hand held assist during gait ex. Patient is still unsteady during all turns, requiring therapist assist with walker safety. Patient returned to w/c per OT offset assistant press operator request and remained in activity room with body alarm, under [facility] staff Supervision. Will continue per POC as tolerated, total treatment time 15 minutes. Thony Giles, SPAR CAP BEVELER
[2019-02-20 07:36] VITALS: BP 150/69
--- NOTE | 2019-02-20 08:12 | NUR ---
OT NOTE Pt was seen this A.M. 1:1 for 30 minute OT session with COOKER CLEANER and nursing staff present for observation only. Upon arrival pt was sitting reclined in the mary chair in the dining room. Pt identified by name and and had no complaints at this time. Pt was taken out into the hallway where she completed multiple sit to stand transfers from chair level with Nathaniel and use of w/w for UE support. Challenged pt's static standing tolerance needed for increased I in self care tasks and functional transfers. Pt was able to tolerate aprox 2 minutes at a time before sitting due to fatigue. After talking with [facility] staff about pt sitting up in a w/c versus the mary chair, they approved. Pt was then sat upright in the w/c. Educated pt on w/c mobility and pt was much more dominate with R hand versus L resulting in pt turning in circles versus a straight line as requested. Sat with pt during breakfast and she was able to maintain upright misline posture throughout with no verbal prompts required. Pt required maxA for set up of tray and was able to complete self feeding with supervision while managing utensils and cups. Pt was left sitting upright in the w/c in the dining room with body alarm on for safety and under [facility] staff supervision. Continue with rec D/C plan to return to LTC. DOM Spivey/Rachael
--- NOTE | 2019-02-20 11:36 | NUR ---
AM GROUP/CURRENT EVENTS PT WAS PRESENT FOR MORNING GROUP THERAPY SITTING UPRIGHT IN A RAFAL CHAIR. PT NODDED OFF DURING GROUP AND WAS RECLINED FOR COMFORT. PT THANKED THIS MILLER KILN DRIED SALT AND WENT BACK TO SLEEP. PT IS UNABLE TO PARTICIPATE AT THIS TIME DUE TO COGNITIVE IMPAIRMENT.
--- NOTE | 2019-02-20 12:04 | NUR ---
SPEECH PATHOLOGY Patient was seen for swallowing treatment this date, during portions of both breakfast and lunchtime meals. For breakfast, she was sitting upright in wheelchair, feeding herself. Patient was observed tolerating various food and liquids with no overt difficulty. Good intake was displayed. No pocketing, holding or spitting of food was observed. During lunch she was noted to be alert, sitting upright in chair and easily distracted. She drank only jaime verona. Food was cut up and encouragement was provided to eat but patient politely refused any food item, or any liquid, other than jaime verona. When asked if she wanted anything to eat, she shook her head no. When asked if she felt full she nodded yes. She was shown all food items on tray but would not consume any, but continued to drink jaime verona with no difficulty. Recommend she continue with current diet, with encouragment provided as needed and monitoring during meals to ensure that she is swallowing food and liquids. Continue therapy plan. JULIO FOREMAN MSCCC-CRATE MAKER
--- NOTE | 2019-02-20 15:34 | NUR ---
PM GROUP/LEISURE INTERESTS PT ATTENDED AFTERNOON GROUP THERAPY AND PARTICIPATED BY COLORING FOR ABOUT AN HOUR AND THEN BEGAN . PT CONTINUED TO TRY TO GET UP ON HER OWN BECAUSE "I HAVE TO GET HOME TO COOK FOR MY AND MY KIDS." PT COULD NOT BE REDIRECTED AND WAS PLACED IN FRONT OF THE NURSES STATION FOR SAFETY.
--- NOTE | 2019-02-20 15:55 | NUR ---
P: PT RESTLESS, YELLING OUT AT TIMES. PT DELUSIONAL THINKING SHE NEEDS TO GET HOME AND FEED HER CHILDREN. PT PARARNOID, LOOKING AT MALE PEER AND STATING HES GOING TO KILL EVERYONE, I KNOW IT. PT REFUSED PART OF AM PO MEDS AND 1300 MEDS. I: PROVIDED EMOTIONAL SUPPORT AND 1:1 FOR PT TO VOICE FEELINGS, ENCOURAGED MED COMPLIANCE, PROVIDED REASSURANCE OF SAFETY, PROVIDED RE-ORIENTATION AND PRESENTATION OF REALITY R: PT CONTINUES TO YELL OUT, REORIENTATION AND PRESENTATION OF REALITY INEFFECTIVE DUE TO COGNITION. PT CONTINUES TO REFUSE MEDS. PT ALERT TO PERSON ONLY, CONFUSION AND SHORT TERM MEMORY DEFICITS NOTED PER PT BASELINE. NO SUICIDAL THOUGHTS OR BEHAVIORS NOTED. PT UP TO A GERICHAIR REQUIRES 1 STAFF ASSIST FOR TRANSFERS AND CARE. PT CONTINENT OF BOWEL AND BLADDER, EPISODES OF INCONTINENCE NOTED, CARE PROVIDED NEEDED. P: CONTINUE TO MONITOR PT BEHAVIORS ON Q15 MIN SAFETY CHECKS, ENCOURAGE MED COMPLIANCE, CONTINUE TO PROVIDE REASSURANCE OF SAFETY, PRESENT REALITY AND RE-ORIENT, PROVIDE EMOTIONAL SUPPORT AND 1:1 FOR PT TO VOICE FEELINGS
[2019-02-20 20:00] VITALS: BP 123/84
--- NOTE | 2019-02-20 20:47 | NUR ---
EVENING. PT IN ACTIVITIES OBSERVING. PT DID EXPRESS SOME ANGER TOWARDS THIS STAFF. PT STATES "I DON'T KNOW WHAT YOU ARE BUT YOU SURE AREN'T A LADY". PT EXPRESSING ANXIETY OVER HER COMING TO GET HER. PT OFFERED COMFORT. PT CHOSE TO RELAX THE REMAINDER OF GROUP. PT WILL CONTINUE TO ATTEND FUTURE GROUP SESSIONS AND ENCOURAGED TO PARTICIPATE TO BEST OF ABILITY.
--- NOTE | 2019-02-20 22:25 | NUR ---
Patient alert and oriented to self only with confusion noted. ST/LT memory deficits noted. Patient compliant with medications and much encouragement. Assessed patient's mouth afterward to check for pocketing any medication and mouth was entirely clear. Provided emotionaly support as much as patient would allow. Plan to continue to encourage medication compliance and continue to provide emotional support. Q 15 minute safety checks continued and maintained. See [facility] flowsheet for further documentation.
--- NOTE | 2019-02-21 01:05 | NUR ---
24 HR chart check completed.
--- NOTE | 2019-02-21 04:17 | NUR ---
Called and notified Dr. Yañez regarding patient vomiting and having diarrhea. Dr. Yañez said he would come to examine patient.
--- NOTE | 2019-02-21 04:18 | NUR ---
Patient vomiting clear mucous. Skin feels clammy. Took bedside blood sugar and it was 171. Took vital signs which were 97.1temp.-76 pulse-16 resp.-149/80 bp and pulse ox was bouncing between 96-97% on room air. No signs of any other symptoms. Awaiting for Dr. Yañez to come.
--- NOTE | 2019-02-21 04:46 | NUR ---
Patient slept approx. 4 hours throughout shift prior to vomiting. Q 15 minute safety checks continued and maintained.
--- NOTE | 2019-02-21 06:02 | NUR ---
Called and updated Dr. Yañez regarding patient's condition. Patient no longer having vomiting and diarrhea at this time. Dr. Yañez said he would let daylight know so they can order studies to be done.
--- NOTE | 2019-02-21 07:13 | NUR ---
OT NOTE Attempted to see pt this A.M. for OT session. Upon arrival [facility] staff reported that pt had been up sick all night and is now resting. Requesting to let her sleep. Will check back at a later time/date and continue with POC as able. DOM Spivey/Rachael
--- NOTE | 2019-02-21 07:20 | NUR ---
PHYSICAL THERAPY Patient was in bed sound asleep this am when approached for therapy visit. [facility] staff informed therapist patient had multiple bouts of Emesis early this and only slept < 4 hours. Staff request patient to be left alone to rest and will continue per POC as able. Thony Giles, PULL OVER
[2019-02-21 07:30] VITALS: BP 133/68
--- NOTE | 2019-02-21 07:50 | NUR ---
SPOKE WITH DR. VINCENT AT [phone] RE: PT VOMITED AND HAS 2 EPISODES OF DIARRHEA OVERNIGHT, PT NO LONGER VOMITING, SKIN IS PALE IN COLOR. PT DROWSY, RESPONDS TO TACTILE AND VERBAL STIMULI. PER DR. VINCENT HE WILL ORDER LABS AND COME TAKE A LOOK AT HER.
--- NOTE | 2019-02-21 08:10 | NUR ---
Treatment Plan meeting with Dr. Oconnor, RN, AT, SW and Director Of Catering Sales. Plan for discharge next week. Pt. will return to [place].
[2019-02-21 08:15] LABS: BASO % 0.1 % (0.0-1.0); EOS % 0.1 % (1.0-4.0); HEMATOCRIT 42.6 % (37.0-47.0); HEMOGLOBIN 13.8 g/dl (12.0-16.0); LYMPH # 1.6 10*3/uL (1.3-4.4); LYMPH % 12.6 % (27.0-41.0); MEAN CELL VOLUME 95.5 fl (81.0-99.0); MEAN CORPUSCULAR HGB 30.9 pg (27.0-31.0); MEAN CORPUSCULAR HGB CONC 32.4 g/dl (33.0-37.0); MEAN PLATELET VOLUME 9.1 fl (9.6-12.3); MONO # 0.8 10*3/uL (0.1-1.0); MONO % 6.4 % (3.0-9.0); NEUT # 10.4 10*3/uL (2.3-7.9); NEUT % 80.5 % (47.0-73.0); PLATELET COUNT AUTOMATED 261 10*3/uL (130-400); RED BLOOD COUNT 4.46 10*6/uL (4.10-5.10); RED CELL DISTRI WIDTH 12.7 % (0-14.5)
[2019-02-21 08:30] LABS: ALBUMIN 3.3 gm/dl (3.1-4.5); ALKALINE PHOSPHATASE 72 U/L (45-117); BUN 12 mg/dl (7-24); CHLORIDE 104 mmol/L (98-107); POTASSIUM 4.4 mmol/L (3.5-5.1); SGOT/AST 12 IU/L (3-35); SGPT/ALT 13 U/L (12-78); SODIUM 136 mmol/L (136-145); TOTAL PROTEIN 7.3 gm/dL (6.4-8.2)
--- NOTE | 2019-02-21 08:45 | NUR ---
SPOKE WITH DR. VINCENT AT [phone], RE: PT LABS PER DR VINCENT HE WILL TAKE A LOOK AT THEM. NO FURTHER ORDERS AT [facility].
--- NOTE | 2019-02-21 09:40 | NUR ---
Spoke with Saumya Souza at [place]. Advised of plans to discharge next week. Clinical Updates faxed to Facility.
--- NOTE | 2019-02-21 11:14 | NUR ---
DR. VARNER ON UNIT TO ASSESS PT, UPDATE PROVIDED.
--- NOTE | 2019-02-21 11:41 | NUR ---
AM GROUP PT DID NOT ATTEND MORNING GROUP THERAPY. PT WAS IN BED RESTING
--- NOTE | 2019-02-21 12:10 | NUR ---
OT NOTE Pt was seen this P.M. 1:1 for 15 minute OT session with nursing staff present for observation only. Upon arrival pt was sitting upright in the dining room in her mary chair. Pt identified by name and and had reports of "I was sick all night, but I am feeling better today. I just need to take it easy and not eat much." Pt's lunch tray arrived which she required Nathaniel for set up for removing lids from items. Self feeding completed with supervision while managing spoon and cups. Pt was left sitting upright in the dining room under [facility] staff supervision. Continue with rec D/C plan to return to LTC. DOM Spievy/Rachael
--- NOTE | 2019-02-21 12:13 | NUR ---
SPEECH PATHOLOGY Patient was seen for treatment this pm during lunchtime meal. Patient had been ill yesterday night and slept through this morning's breakfast. She was awake and alert for lunch and stated that she was feeling better but wanted to eat light. She had broth, jello and a drink. She was able to feed herself without difficulty and implemented safety strategies such as slow consumption, small bites and sips and alternating food and liquid. She displayed no oral or pharyngeal difficulty. She swallowed in a timely manner without pocketing, holding or spitting out food. Continue therapy plan to ensure safe tolerance of diet to reduce aspiration risk. JULIO FOREMAN MSCCC-BOOKBINDING MACHINE OPERATOR
--- NOTE | 2019-02-21 14:31 | NUR ---
LUCIEEVERT MOODY Ester [id number] Please refer to the physician's history and physical for past medical history, comorbid conditions, and allergies. Diagnosis: INTERMITTENT EXPLOSIVE DISORDER Ezequiel Score: 15,AT RISK WOUND DESCRIPTIONS: Wound Number: 1 Location of the wound: right posterior calf Thickness: Full Size: 1.1cm x 1.8cm x 0.1cm Tunneling: none Undermining: none Sinus Tract: none Presence of Exudate: none Amount: none Color: Brown, red Odor: None Periwound Skin Appearance: Erythema Wound edges: approximated Pain (associated with wound): none at time of assessment How does patient state this happened? pt unable to state how this happened Surface the patient is resting on: Proform SKIN PREVENTION RECOMMENDATION: 1. Pressure redistribution support surface as appropriate 2. Elevate heels 3. Remove boots/TEDS every shift and reapply 4. Head of bed 30 degrees as tolerated 5. Assess nutrition and hydration 6. Manage moisture 7. Avoid the use of containment devices while in bed 8. Use absorptive products on surfaces limit layers of linens on bed 9. Turn and reposition every 1-2 hours in bed and every 1 hour in chair as tolerated 10. Weight shifts every 15 minutes while up in chair 11. Offloading with pillows or device to keep heels elevated off bed 12. Monitor skin at least every shift 13. Inspect under medical devices twice a day WOUND TREATMENT RECOMMENDATIONS: Continue full thickness guidelines to right posterior calf. Continue heel raiser pro boots while in bed to bilateral feet.
--- NOTE | 2019-02-21 15:42 | NUR ---
PM GROUP/ART AND MUSIC PT ATTENDED AFTERNOON GROUP THERAPY BUT CHOSE NOT TO PARTICIPATE. PT SAT AND OBSERVED PEERS FOR MOST OF THE GROUP BUT BEGAN ING AND STATING, "I HAVE TO GO NOW". PT ATTEMPTED TO GET UP FROM THE RAFAL CHAIR FOR 15 MINUTES OR MORE BUT COULD NOT. PT WAS NOT REDIRECTABLE AND FINALLY WORE HERSELF OUT STATING, "WILL YOU TELL DON WHEN HE GETS HERE TO WAKE ME UP?" PT EXHIBITED NO AGITATION OR AGGRESSION DURING GROUP
--- NOTE | 2019-02-21 17:24 | NUR ---
P: PT DELUSIONAL THINKING SHE IS WITH A FEMALE PEERS BABY. PT OBSEVRED TO BE SPEAKING TO UNSEEN OTHERS AT TIMES. I: PROVIDED EMOTIONAL SUPPORT AND 1:1 FOR PT TO VOICE FEELINGS, ENCOURAGED MED COMPLIANCE, PROVIDED RE-ORIENTATION AND PRESENTED REALITY, R: PT CONTINUNES TO BE DELUSIONAL AT TIMES, PLEASANT AND COOPERATIVE WITH STAFF AND PEERS THIS AFTERNOON. PT ALERT TO PERSON ONLY, CONFUSION AND SHORT TERM MEMORY DEFICITS NOTED PER PT BASELINE. PT UP TO GERICHAIR REQUIRES 1-2 STAFF ASSIST FOR TRANSFERS AND CARE. PT INCONTINENT OF BOWEL AND BLADDER, CARE PROVIDED NEEDED. PT MED COMPLIANT WITH MINIMAL DIFFICUTLY. P: CONTINUE TO PROVIDE EMOTIONAL SUPPORT AND 1:1 FOR PT TO VOICE FEELINGS, CONTINUE TO RE-ORIENT AND PRESENT REALITY, ENCOURAGE MED COMPLIANCE
[2019-02-21 20:00] VITALS: BP 126/90
--- NOTE | 2019-02-21 21:52 | NUR ---
P--CONFUSION I--EXPLAINED ALL MEDICATIONS BEFORE GIVING THEM. REORIENTED TO PLACE AND TIME. SPEECH SLOW AND SOFT. LET HER TALK BUT UNABLE TO HOLD CONVERSATION R--OK I WILL TAKE THEM. TOOK MEDS CRUSHED IN APPLESAUCE. FEEDING SELF SUSAN CRACKER AND TAKING IN FLUIDS P--CONTINUE TO PROVIDE EMOTIONAL SUPPORT,, REORIENTATION TO TIME AND PLACE. MONITOR FOR ANY CHANGE IN MOOD AND OR BEHAVIOR
--- NOTE | 2019-02-22 04:19 | NUR ---
24 HR chart check completed.
--- NOTE | 2019-02-22 06:13 | NUR ---
SLEPT WELL PAST 2300
--- NOTE | 2019-02-22 06:16 | NUR ---
GETTING READY FOR SHOWER AND MORNING CARE. SLEPTWELL PAST 2300PM
--- NOTE | 2019-02-22 07:27 | NUR ---
OT NOTE Attempted to see pt this A.M. for OT session and upon arrival pt was sitting semi reclined in the mary chair in the dining room asleep. [facility] staff reported that pt had been up sick throughout the night and requesting to let her sleep at this time. Will check back at a later time/date and continue with POC as able. DOM Spivey/Rachael
--- NOTE | 2019-02-22 07:28 | NUR ---
OCCUPATIONAL THERAPY CO-SIGN I approve of the Occupational Therapy notes written above. ELLEN HENDRICKS OTR/Rachael
--- NOTE | 2019-02-22 07:34 | NUR ---
PHYSICAL THERAPY Patient was semi reclined in activity room [facility] this am when approached for therapy. Patient did not respond to tactile / verbal stimuli and was not appropriate for treatment at this time. Will continue per POC as able. Thony Giles, SHIPWRIGHT HELPER
[2019-02-22 07:58] VITALS: BP 148/88
--- NOTE | 2019-02-22 08:30 | NUR ---
Treatment Plan meeting with Dr. Oconnor, RN, AT, SW and Business Process Coordinator. Plan for discharge next week. Pt. will return to [place].
--- NOTE | 2019-02-22 08:35 | NUR ---
SPEECH PATHOLOGY Patient was asleep in mary chair this morning and did not wake up for breakfast. Staff reported that she was vomiting in the night. Will attempt treatment during lunchtime meal. JULIO FOREMAN MSCCC-AIRCRAFT SKIN BURNISHER
--- NOTE | 2019-02-22 11:55 | NUR ---
AM GROUP NO AM GROUP THERAPY THIS MORNING DUE TO 1:1 WITH NEW PT
--- NOTE | 2019-02-22 12:28 | NUR ---
DR VARNER AND DR VINCENT UPDATED ON ERYTHROMYCIN NOT BEING AVAILABLE FROM PHARMACY. PHARMACY STATED THEY WERE UNPACKING IT.
--- NOTE | 2019-02-22 12:45 | NUR ---
SPEECH PATHOLOGY Patient was seen for treatment this pm during lunchtime meal. Patient was upright in chair in activity room with peers. Patient fed herself and ate a variety of food and liquids. Toward end of meal when patient was consuming pudding, she was noted to be holding the material in her mouth at times. This was felt to be due to cognitive status. Patient was easily distracted during the meal and often times would become distracted by something else in the room, and not swallow. When she was cued to swallow, she was able to. Patient was educated on importance of trying to swallow right away to prevent choking. She nodded in agreement but due to cognition, it is unknown if she fully comprended information presented. Staff was alerted and recommended to monitor patient and provide cues as needed. Patient may also benefit from a seating arrangement where it is less distracting. Continue therapy plan to ensure safety with oral intake. JULIO [facility]-INDUSTRIAL EDUCATION TEACHER
--- NOTE | 2019-02-22 13:03 | NUR ---
PT REFUSED AM MEDICATIONS AND BREAKFAST. NO ADVERSE MOODS OR BEHAVIORS NOTED. WILL CONTINUE TO MONITOR BEHAVIORS WITH Q15 MINUTE SAFETY CHECKS. URINE COLLECTED AND SENT TO LAB. WILL UPDATE DR ON LAB RESULTS ONCE AVAILABLE. INCONTINENCE CARE PROVIDED WHEN NEEDED.
[2019-02-22 13:04] LABS: BILIRUBIN NEGATIVE (NEGATIVE); BLOOD NEGATIVE (NEGATIVE); CLARITY SL CLOUDY (CLEAR); COLOR YELLOW (YELLOW); GLUCOSE 1+ (NEGATIVE); KETONE NEGATIVE (NEGATIVE); LEUKO ESTERASE NEGATIVE (NEGATIVE); NITRITE NEGATIVE (NEGATIVE); SPECIFIC GRAVITY 1.025 (1.005-1.030); UROBILINOGEN 0.2 E.U./dl (0.2-1.0)
--- NOTE | 2019-02-22 15:50 | NUR ---
PM GROUP PT WAS PRESENT FOR AFTERNOON GROUP THERAPY BUT IS UNABLE TO PARTICIPATE DUE TO COGNITIVE IMPAIRMENT. PT SLEPT RECLINED IN A RAFAL CHAIR
--- NOTE | 2019-02-22 17:02 | NUR ---
DURING HOC MILIEU NOTED A SKIN TEAR TO PATIENTS LEFT LOWER LEG MEASURING 2.5CM X 1CM X 0.1CM. HOC COMPLETED AND THIS NURSE COMPLETED WOUND CARE. AREA CLEANSED WITH NSS AND A DRESSING APPLIED. PT PLACED IN FRONT OF NURSES STATION. PT WAS NOTED TO PLACING LEG DANGLING OVER THE LEFT SIDE OF THE CHAIR. PT'S LEG REPOSITIONED MULTIPLE TIMES. DR VINCENT UPDATED, DIRECTOR AND HEAVY DUTY PRESS OPERATOR UPDATED. VERGE INCIDENT COMPLETED.
[2019-02-22 19:39] VITALS: BP 150/81
--- NOTE | 2019-02-22 21:19 | NUR ---
SPITTING OUT CLEAR THICK PHLEGM. NOSE RUNNING CLEAR. TOOK MEDICATIONS IN APPLESAUCE THEN WANTED TO GO TO BED. REFUSED 1:1. CHANGED AND PLACED IN BED IN POSITION OF COMFORT. WILL CONTINUE TO MONITOR SPUTUM.
--- NOTE | 2019-02-23 02:03 | NUR ---
24 HR chart check completed.
--- NOTE | 2019-02-23 06:03 | NUR ---
SLEPT WELL PAST 2145PM WITH FEW INTERUPTIONS
--- NOTE | 2019-02-23 07:15 | NUR ---
OT NOTE Pt was seen this A.M. 1:1 for 15 minute OT session with ENTRY LEVEL RECRUITER and nursing staff present for observation only. Upon arrival pt was sitting semi reclined in the mary chair in the dining room. Pt identified by name and and had no complaints at this time. Pt was taken to her bedroom where she completed sit to stand from chair level with Nathaniel X 2 and use of w/w for UE support. Upon inital rise pt presented with retrograde posture that required modA to correct and mod verbal prompts for proper hand placement on the walker. Functional mobility completed into the bathroom with Nathaniel and use of w/w with Nathaniel for walker navigation due to running walker into bed and wall. Pt then stood sink side while washing her hands with modA due to poor command follow and poor sequencing. While standing at sink pt had complaint that her stomach was upset and began to spit in the sink. Pt was sat in mary chair with maxA due to poor command follow, provided with a basin, and sat upright in the dining room with body alarm on for safety, and under [facility] staff supervision. Continue with rec D/C plan to return to LTC. DOM Spivey/Rachael
--- NOTE | 2019-02-23 07:48 | NUR ---
PHYSICAL THERAPY PT SITTING IN RAOUL CHAIR IN ACTIVITY ROOM UPON ARRIVAL. PT IDENTIFIED BY NAME AND . PT PRESENT WITH BODY ALARM ON. RIC PRESENT FOR OBSERVATION. PT TAKEN TO HALLWAY WHERE PT PERFORMED STS FROM RAOUL CHAIR TO FWW WITH Page X2 WITH PT HAVING RETRO STANDS ONCE TO STANDING. PT THEN REQUIRED VC'S TO WALKING 30FT X1 WITH Page X1 WITH VC'S FOR BIGGER STEPS AND TO LOOK UP WHERE PT WAS WALKING AND FOLLOWED BY RAOUL CHAIR. PT REQUIRED A SHORT SEATED BREAK. PT Page X 1 FOR STS TO RAOUL CHAIR. PT STS FROM RAOUL CHAIR WITH Page X2 WITH VC'S TO STAND UP STRAIGHT AND VC'S FOR SAFETY WITH STS. PT GAIT TRAINED 10FTX 1 WITH Page X1 WITH VC'S FOR SAFETY WITH PROPER USED OF WALKER TO BATHROOM WITH RIC TOOK OVER . PT SEEN 1:1 FOR 18 MINS. HILLARY JENNINGS PTA
[2019-02-23 08:09] VITALS: BP 142/81
--- NOTE | 2019-02-23 08:31 | NUR ---
PHYSICAL THERAPY Nursing screen received. Patient currently on PT caseload. Thank you. Ami Griffiths,PT,DPT.
--- NOTE | 2019-02-23 08:50 | NUR ---
SPEECH THERAPY Patient seen for follow-up swallowing treatment at morning meal. Upon clinicani arriaval, patient was eating breakfast at table with a basin with vomit beside her at her feet. Patient's aide reported that she threw up her medication earlier. She additionally reported patient has not demonstrated any difficulty with eating, however she has difficulty swallowing her medication/pills. Patient eating variety of food items at breakfast including pancakes and scrambled eggs. She additionally was taking sips of milk throughout meal. Patient observed to hold milk carton up to her mouth, but was not actively taking a drink. Patietn given a straw to assist in liquid consumption, as she was then independently able to obtain milk from the carton. On one trial, patient did not independently elicit a swallow and was observed holding the milk in her mouth. When asked if she swallowed the milk, she shook her head no, and then was cued to swallow with immediate response. Education provided discussing importance of immedate rather than delayed swallow. She demonstrated no difficulty with solid food items, and no overt s/s of pentration or aspiration with thin liquids. She independently took sips of liquid throughout the meal and effectively cleared her oral cavity. Patient consumed her food at a slow rate, however ate the majority of her tray while this clinicain was present. Patient tolerating current diet, with no overt s/s of penetration or aspiration observed. Patient requires monitoring during meals, as she occassionally pockets liquids prior to eliciting a swallow. Patient's aide reported that she always has supervision at meal time. Additionally recommended seating arrangements to assist in reducing distractions of visual stimuli around her. Patient to continue with regular diet and thin liquids, with monitoring to occur during meals. Discussed plan of care with patient's nurse who verbalized understanding. Patient to be discharged due to functional oropharyngeal swallow mechanism and safety and tolerance of recommended diet. Speech Therapy available for re-consultation of change in swallow function occurs. Cris Shelby MA CCC-VISCOSE CELLAR CHARGE HAND
--- NOTE | 2019-02-23 09:38 | NUR ---
Treatment Plan meeting was held this a.m. with Dr. Oconnor, RN, AT, and Fruit Sorter. Plan for discharge Tuesday. Spoke with Saumya Souza at [facility] and notified of discharge Plans. Clinical Updates faxed to facility.
--- NOTE | 2019-02-23 11:52 | NUR ---
EVERT MITCHELL [id number] Please refer to the physician's history and physical for past medical history, comorbid conditions, and allergies. Diagnosis: INTERMITTENT EXPLOSIVE DISORDER Ezequiel Score: 15,AT RISK WOUND DESCRIPTIONS: Wound Number: 2 Location of the wound: left lower leg Type of wound: skin tear Thickness: Partial Size: 2.9cm x 1.8cm x 0.1cm Tunneling: none Undermining: none Sinus Tract: none Presence of Exudate: Serous sanguineous Amount: Light Color: Red Odor: None Periwound Skin Appearance: Normal Wound edges: approximated Pain (associated with wound): denied at time of assessment How does patient state this happened? patient unsure how this happened. If wound is on legs/feet or hands, capillary refill time, pulses, color temp, sensation: cap refill < 3 seconds. Surface the patient is resting on: Proform SKIN PREVENTION RECOMMENDATION: 1. Pressure redistribution support surface as appropriate 2. Elevate heels 3. Remove boots/TEDS every shift and reapply 4. Head of bed 30 degrees as tolerated 5. Assess nutrition and hydration 6. Manage moisture 7. Avoid the use of containment devices while in bed 8. Use absorptive products on surfaces limit layers of linens on bed 9. Turn and reposition every 1-2 hours in bed and every 1 hour in chair as tolerated 10. Weight shifts every 15 minutes while up in chair 11. Offloading with pillows or device to keep heels elevated off bed 12. Monitor skin at least every shift 13. Inspect under medical devices twice a day WOUND TREATMENT RECOMMENDATIONS: Continue current orders.
--- NOTE | 2019-02-23 11:53 | NUR ---
Nutritional Support Services Note: Pt is receiving an 1800cal diabetic diet with Glucerna OS tid with meals. Wounds noted. No other nutrition intervention noted at this time. Staff to encourage intake and assist as needed. Jordyn Rosenthal Rdn Ld
--- NOTE | 2019-02-23 13:27 | NUR ---
Met with pt who was sleeping and pt's . Discussed pt's current status and tentative discharge date. Answered all questions that pt's had.
--- NOTE | 2019-02-23 13:39 | NUR ---
Nursing screen received and patient is an active patient on OT caseload. Thank you. Leena Nguyễn Otr/l
--- NOTE | 2019-02-23 14:58 | NUR ---
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 R: REFUSED MORNING MEDICINE AND TOOK AFTERNOON MEDICINE. PATIENT IS ALERT TO SELF WITH CONFUSION; ABLE TO VOICE NEEDS. LONG/SHORT TERM MEMORY DEFICITS. MOOD IS LESS DEPRESSED WITH FLAT AFFECT. RESPONDING TO INTERNAL STIMULI, VOICED DELUSIONAL THOUGTHS; NO VOICED STATEMENTS OF HI/SI OR PAIN. INTERACTIVE WITH STAFF. PATIENT IS RESTING QUIETLY WTIH EYES CLOSED. 1-2 PERSON ASSIST WITH ACTIVITIES OF DAILY LIVING, INCONTINENT OF BOWEL AND BLADDER. SET UP FOR MEALS, INTAKES ARE IMPROVING. Q 15 MINUTE SAFETY CHECKS MAINTAINED. P: MONITOR FOR MEDICATION COMPLIANCE, ANY HALLUCINATIONS OR DELUSIONS; PROVIDE ONE ON ONE AND REDIRECTION.
--- NOTE | 2019-02-23 15:03 | NUR ---
PHYSICAL THERAPY CO-SIGN I approve of the Physical Therapy notes written above. CLOTILDE MYERS PT,DPT
[2019-02-23 19:32] VITALS: BP 129/85
--- NOTE | 2019-02-23 21:53 | NUR ---
Patient alert and oriented to self only with confusion noted. ST/LT memory deficits noted. Patient compliant with medications and much encouragement. Assessed patient's mouth afterward to check for pocketing any medication and mouth was entirely clear. Provided emotional support as much as patient would allow. Plan to continue to encourage medication compliance and continue to provide emotional support. Redirect/reorient when appropriate/needed. Q 15 minute safety checks continued and maintained. See [facility] flowsheet for further documentation.
--- NOTE | 2019-02-24 | NUR ---
Patient stripping off clothes,trying to get out of bed. Placed patient in Gerichair without tray in front of nurses' desk. Patient continuously yelling help and disturbing other patients. Unable to redirect. All non-pharmacological interventions unsuccessful. Medicated with Vistaril IM prn for agitation/anxiety. Will continue to monitor behaviors.
--- NOTE | 2019-02-24 00:33 | NUR ---
24 HR chart check completed.
--- NOTE | 2019-02-24 04:55 | NUR ---
Patient slept approx. 5 hours throughout shift. Q 15 minute safety checks continued and maintained.
[2019-02-24 07:53] VITALS: BP 143/85
--- NOTE | 2019-02-24 10:30 | NUR ---
DR VARNER ON UNIT TO ASSESS PATIENT.
--- NOTE | 2019-02-24 11:26 | NUR ---
PATIENT WAKE UP COUGHING, THICK, TENACIOUS CLEAR PHLEGM. VITALS: 97.6, 83, 16, 96% RA BP 146/65. LUNGS CLEAR. DR. MOORE NOITIFIED.
--- NOTE | 2019-02-24 12:15 | NUR ---
AM GROUP/EXERCISE/BINGO! PT ATTENDED GROUP BUT SLEEPING IN RECLINER. PT BEGAN COUGHING UP FOAMY SALVIA. THIS STAFF YELLED FOR NURSES HELP WHILE SITTING PT UP IN RECLINER. NURSES CAME AND ASSISTED PT THEN REMOVED FROM DAYROOM TO NOT RETURN. PT WILL CONTINUE TO BE ENCOURAGED TO ATTEND AN DPARTICIPATE IN GROUP TO BEST OF PT ABILITY.
--- NOTE | 2019-02-24 15:43 | NUR ---
PM GROUP/ART/FOOTBALL PT ATTENDED ENTIRE GROUP BUT RESTING IN RECLINER ENTIRE TIME. PT WILL CONTINUE TO ATTEND GROUP AND BE ENCOURAGED TO PARTICIPATE TO BEST OF ABILITY.
--- NOTE | 2019-02-24 18:18 | NUR ---
PATIENT IS ALERT AND ORIENTED TO PERSON WITH CONFUSION. LONG/SHORT TERM MEMORY DEFICITS. MOOD IS STABLE. NO RESPONSE TO INTERNAL STIMULI OBSERVED. NO VOICED STATEMENT OF HI/SI OR PAIN. MEDICATION COMPLAINT WITH MORNING; HELD AFTERNOON MEDICINE DUE TO DROWSINESS. Q 15 MINUTE SAFETY CHECKS MAINTAINED. 1-2 PERSON ASSIST WITH ACTIVITIES OF DAILY LIVING, INCONTINENT OF BOWEL AND BLADDER. SET UP FOR MEALS. PATIENT ABLE TO FEEL SELF. GOOD INTAKES THIS MORNING, SLEPT AT LUNCH TIME. CONTINUE TO MONITOR FOR MEDICATION COMPLIANCE, AGGRESSION AND DELSIONS. PROVIDE ONE ON ONE AND REDIRECTION NEEDED.
[2019-02-24 20:00] VITALS: BP 130/84
--- NOTE | 2019-02-24 23:31 | NUR ---
NO ADVERSE MOODS OR BEHAVIORS NOTED THIS SHIFT. ALERT AND ORIENTED TO PERSON ONLY. PATIENT PLEASANT AND INTERACTIVE WITH PEERS/STAFF. DENIES HALLUCINATIONS, SI/HI, OR PAIN. NO S/S OF INTERACTING WITH INTERNAL STIMULI. NO DELUSIONAL THOUGHT PROCESS NOTED. NO S/S OF DISTRESS, RESPS EVEN AND UNLABORED ON ROOM AIR. REFUSED HS SNACK, PT STATED THAT SHE WAS NOT FEELING HUNGRY. MEDICATION COMPLIANT WITH EDUCATION PROVIDED ON EACH. TWO ASSIST WITH TRANSFERING AND CARE DUE TO UNSTEADY GAIT. INCONTINENT OF URINE, ASSISTANCE PROVIDED FREQUENTLY. FALLING STAR PROGRAM IN PLACE. SEIZURE PRECAUTIONS IN PLACE DUE TO HISTORY. Q15 MINUTE CHECKS MAINTAINED FOR SAFETY.
--- NOTE | 2019-02-25 03:10 | NUR ---
24 HR chart check completed.
--- NOTE | 2019-02-25 05:21 | NUR ---
PATIENT MONITORED ON Q15 MINUTE SAFETY CHECKS THROUGHOUT THE NIGHT. PATIENT NOTED TO HAVE SLEPT APPROXIMATELY 6 HOURS WITH A BRIEF AWAKENING DUE TO BEING INCONTINENT OF BM. PATIENT ASSISTED IN GETTING CLEANED UP AND PATIENT WENT BACK TO SLEEP.
[2019-02-25 07:49] VITALS: BP 122/72
--- NOTE | 2019-02-25 12:21 | NUR ---
AM GROUP/BIRDHOUSES/MUSIC PT ATTENDED BUT SLEPT ENTIRE TIME. PT WILL CONTINUE TO ATTEND AND BE ENCOURAGED TO PARTICIPATE TO BEST OF ABILITY IN FUTURE GROUP SESSIONS.
[2019-02-25 15:36] VITALS: BP 110/63
--- NOTE | 2019-02-25 18:48 | NUR ---
NO ADVERSE MOODS OR BEHAVIORS NOTED. MEDICATION COMPLIANT. SPUTUM CULTURE SENT TO LAB AT 1600. SEE [facility] FLOWSHEET FOR SPECIFIC MONITORING. Q15 MINUTE SAFETY CHECKS MAINTAINED.
--- NOTE | 2019-02-25 20:44 | NUR ---
SPIT OUT 0VER 1/2 OF THE APPLESAUCE WITH MEDICATION
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
--- NOTE | 2019-02-25 21:45 | NUR ---
NOT YELLING OUT, TAKEN TO HER ROOM AND PLACED IN BED. BED ALARMS ON
--- NOTE | 2019-02-26 04:34 | NUR ---
24 HR chart check completed.
--- NOTE | 2019-02-26 08:03 | NUR ---
PHYSICAL THERAPY Patient presented to therapy in sitting in mary-chair with chair alarm attached and LEs elevated. Patient is in activity room. Patient has no complaints. Patient was wheeled out in to min way in front of nurses station to begin treatment. Patient gives informed consent for treatment. NEVIN BONDS IS PRESENT WITNESS TO THE PATIENT'S TREATMENT ON U. Patient performed sit to stand transfer from mary-chair with MAX A X 1. Patient required maximum verbal cues for pushing off chair with hands and proper hand placement on the Wh Walker. Patient ambulated 15' x 1 with Wh Walker and CGA X 1 to MIN A X 1 with maximum verbal and tactile cues for upright posture, wider MARY, pushing down on walker with hands, and increasing step-length. Patient is very lethargic. RN requested patient be brought back to activity room for breakfast. Patient was left in mary-chair with chair alarm tested and attached to patient and LEs elevated. Patient was left in activity room with U staff and NURSES present and other patients present. Patient treatment was witnessed by NEVIN BONDS. Patient was 1:1 with this SCOURING MACHINE TENDER for 15 minutes total. MARTINA HORVATH PTA
[2019-02-26 08:12] VITALS: BP 142/74
--- NOTE | 2019-02-26 10:45 | NUR ---
DR. VARNER ON UNIT TO ASSESS PATIENT.
--- NOTE | 2019-02-26 12:23 | NUR ---
AM GROUP PT WAS PRESENT FOR MORNING GROUP THERAPY BUT DID NOT PARTICIPATE. PT WAS RECLINED IN A RAFAL CHAIR SLEEPING.
--- NOTE | 2019-02-26 16:31 | NUR ---
PATIENT IS ALERT TO SELF WITH CONFUSION; LONG/SHORT MEMORY DEFICITS. MOOD IS STABLE. NO HALLUCINATION, DELUSIONS, VOICED HI/SI OR PAIN. NO RESPONSE TO INTERNAL STIMULI. MEDICATION COMPAINT. Q 15 MINUTE SAFETY CHECKS MAINTAINED. UP IN CHAIR RESTING QUIETLY IN DINING ROOM. 2 PERSON ASSIST WITH ACTIVITIES OF DAILY LIVING, INCONTINENT OF BOWEL AND BLADDER, SET UP FOR MEALS, 1 PERSON ASSIST WITH MEALS WITH ENCOURAGEMENT OF FLUIDS. ATTENDED GROUP SESSIONS, DID NOT PARTICIPATE. WITHDRAWN. CONTINUE TO MONITOR FOR AGGRESSION, MEDICATION COMPLIANCE, HALLUCINATIONS AND DELUSIONS. PROVIDE ONE ON ONE AND REDIRECTION NEEDED.
--- NOTE | 2019-02-26 17:02 | NUR ---
PM GROUP/MUSIC/ART PT ATTENDED GROUP BUT RESTED IN RECLINER ENTIRE TIME. PT WILL CONTINUE TO ATTEND GROUP AND BE ENCOURAGED TO PARTICIPATE TO BEST OF PT ABILITY.
[2019-02-26 19:08] VITALS: BP 134/63
--- NOTE | 2019-02-26 20:27 | NUR ---
EVENING/RIDDLES/GAMES PT IN ATTENDANCE OBSERVING PEERS AND LISTENING. PT DID NOT EXPRESS ANY ANXIETY AT THIS TIME AND WILL CONTINUE TO ATTEND AND BE ENCOURAGED TO PARTICPATE TO BEST OF PT ABILITY.
--- NOTE | 2019-02-26 22:28 | NUR ---
PLEASENT AND ALERT TO SELF ONLY ATE SNACK AND WAS MEDICATION COMPLIANT TONIGHT. UNABLE TO HOLD 1:1 DUE TO COGNITION. SHE HAD NO OUTBURST THIS EVENING AND APPEARED RELAXED. MOVES SELF AROUND IN CHAIR WITH EASE. GOOD PO INTAKE FOR HER.
--- NOTE | 2019-02-27 03:02 | NUR ---
24 HR chart check completed.
--- NOTE | 2019-02-27 07:39 | NUR ---
OT NOTE Attempted to see pt this A.M. for OT session and upon arrival pt was sitting reclined in the mary chair in the dining room. Pt was unable to arouse to verbal or tactile stimuli. Will check back at a later time/date and continue with POC as able. DOM Spivey/Rachael
[2019-02-27 07:40] VITALS: BP 112/68
--- NOTE | 2019-02-27 07:41 | NUR ---
PHYSICAL THERAPY Patient was sound asleep in activity room Rody chair upon therapist arrival and unable to arouse at this time for treatment. Will continue per POC as able. Thony Giles, INLAYER SILVER
--- NOTE | 2019-02-27 08:30 | NUR ---
Treatment Plan meeting with Dr. Oconnor, RN, AT, SW and Research Staff Member. Plan for discharge at the end of the week. PASRR pending for SNF. Pt. will return to [facility].
--- NOTE | 2019-02-27 11:21 | NUR ---
Spoke with Saumya at [facility]. Notified of plans to discharge at the end of the week. Pt. will return to [facility]. Clinical Updates faxed to facility.
--- NOTE | 2019-02-27 11:24 | NUR ---
Spoke with Saumya Souza At [facility]. Notified of plans to discharge at the end of the week. Clinical Updates faxed to Facility.
--- NOTE | 2019-02-27 11:42 | NUR ---
AM GROUP/POSITIVITY PT DID NOT ATTEND MORNING GROUP THERAPY. PT WAS IN BED RESTING
--- NOTE | 2019-02-27 13:25 | NUR ---
PT HAS BEEN QUIET THIS SHIFT, DOES AROUSE TO TACTILE STIMULATION, RISPERDAL CONSTA ADMINISTERED 12.5 TO RIGHT BUTTOCKS. APPETITE FAIR, NO SI/HI OR DELUSIONS NOTED. PT RESTING IN BED AT TIMES THROUGHOUT THE MORNING DUE TO FALLING ASLEEP IN THE CHAIR. MEDICATION COMPLIANT
--- NOTE | 2019-02-27 14:05 | NUR ---
Met with pt's Augustus. Pt was also present by was sleeping. Discussed pt's current status. Reviewed pt's current medications. Discussed pt discharging soon.
--- NOTE | 2019-02-27 15:03 | NUR ---
SHIFT CHART CHECK COMPLETED.
--- NOTE | 2019-02-27 15:37 | NUR ---
PM GROUP/ART AND MUSIC PT ATTENDED AND PARTICIPATED IN AFTERNOON GROUP THERAPY. PT WAS TALKATIVE AND DID SOME COLORING. PT WAS MILDLY AND PLEASANTLY CONFUSED. PT EXHIBITED NO AGITATION OR AGGRESSION WHILE IN GROUP
--- NOTE | 2019-02-27 16:11 | NUR ---
PHYSICAL THERAPY DISCHARGE and CO-SIGN Patient is currently being treated with skilled PT services. Patient is making negligible progress toward stated PT goals. Recommend continued mobility with nursing staff for remainder of stay at [facility]. Discharge from PT at this time due to lack of progress noted. I approve of the Physical Therapy notes written above. Thank you. CLOTILDE MYERS PT,DPT
[2019-02-27 16:19] LABS: BUN 19 mg/dl (7-24); CHLORIDE 106 mmol/L (98-107); CREATININE 0.69 mg/dL (0.55-1.02); POTASSIUM 3.8 mmol/L (3.5-5.1); SODIUM 140 mmol/L (136-145)
[2019-02-27 19:11] VITALS: BP 135/60
--- NOTE | 2019-02-27 21:18 | NUR ---
Patient alert and oriented to self only with confusion noted. ST/LT memory deficits noted. Patient compliant with medications and much encouragement. Patient swallowed medicine without any problems. Assessed patient's mouth afterward to check for pocketing any medication and mouth was entirely clear. Provided emotional support as much as patient would allow. Plan to continue to encourage medication compliance and continue to provide emotional support. Redirect/reorient when appropriate/needed. Q 15 minute safety checks continued and maintained. See [facility] flowsheet for further documentation.
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
--- NOTE | 2019-02-28 00:21 | NUR ---
24 HR chart check completed.
--- NOTE | 2019-02-28 05:37 | NUR ---
Patient slept approx. 6 hours throughout shift. Q 15 minute safety checks continued and maintained.
[2019-02-28 07:12] LABS: BASO % 0.1 % (0.0-1.0); EOS # 0.2 10*3/uL (0.0-0.4); EOS % 1.5 % (1.0-4.0); HEMATOCRIT 39.1 % (37.0-47.0); LYMPH # 2.3 10*3/uL (1.3-4.4); LYMPH % 22.8 % (27.0-41.0); MEAN CELL VOLUME 94.2 fl (81.0-99.0); MEAN CORPUSCULAR HGB 31.3 pg (27.0-31.0); MEAN CORPUSCULAR HGB CONC 33.2 g/dl (33.0-37.0); MEAN PLATELET VOLUME 9.2 fl (9.6-12.3); MONO # 0.6 10*3/uL (0.1-1.0); MONO % 6.3 % (3.0-9.0); NEUT # 6.8 10*3/uL (2.3-7.9); PLATELET COUNT AUTOMATED 269 10*3/uL (130-400); RED BLOOD COUNT 4.15 10*6/uL (4.10-5.10); RED CELL DISTRI WIDTH 12.9 % (0-14.5); WHITE BLOOD COUNT 9.9 10*3/uL (4.8-10.8)
[2019-02-28 08:00] VITALS: BP 140/80
--- NOTE | 2019-02-28 08:16 | NUR ---
OT NOTE Attempted to see pt this A.M. for OT session and upon arrival pt was asleep in the quiet room in her mary chair. Pt was unable to arouse to verbal and tactile stimuli. Will check back at a later time/date and continue with POC as able. DOM Spivey/Rachael
--- NOTE | 2019-02-28 08:30 | NUR ---
Treatment Plan meeting with Dr. Oconnor, RN, AT, and Finance Assistant. Plan for discharge Tuesday. Pt. will return to [facility].
--- NOTE | 2019-02-28 09:01 | NUR ---
ZULMA HAYES CNP ON UNIT TO ASSESS PATIENT.
--- NOTE | 2019-02-28 11:10 | NUR ---
Occupational Therapy Discharge Summary Patient was evaluated and POC established 02/12/19. Patient was treated in occupational therapy 12/05 offered sessions. She was c/o illness 11/04 sessions primarily with stomach upset. Patient is inconsistant in her performance but has progressed in feeding, functional transfers and mobility and w/c posture and positioning. Levels 02/13/19 Level 02/28/19 Max A grooming MOd A grooming Supervision Feeding Supervision feeding Max A transfers Min/Mod A transfers Gerichair positioning Tolerates w/c for feeding Gerichair positioning Good sitting posture in w/c Unable to propel w/c Unable to propel w/c Recommend Discharge OT at this time d/t max potential toward goals. Patient to return to [facility] upon d/c. Leena Nguyễn OTR/l
--- NOTE | 2019-02-28 11:15 | NUR ---
P: COMBATIVE WITH HANDS ON CARE, ASKING NURSE "ARE YOU A MURDERER?", KICKING AND HITTING AT NURSE. PATIENT REFUSING MEDICATIONS. I: ONE ON ONE, REDIRECTIONS, ENCOURAGED TO TAKE MEDICATIONS PRESCRIBED AND PROVIDED SPACE. PATIENT YELLING OUT. R: PROVIDING SPACE EFFECTIVE. PATIENT IS ALERT TO PERSON, AWARE OF BEING IN THE HOSPITAL WITH CONFUSION. MOOD IS DEPRESSED, IRRITABLE AND LABILE. DENIES ANY HALLUCINATIONS, DELUSIONS, HI/SI OR PAIN. PATIENT RESPONDING TO INTERNAL STIMULI. PARANOID THOUGHTS VOICED. REFUSED MEDICINE X2 ATTEMPTS. PATIENT CONTINUES TO REFUSED. Q 15 MINUTE SAFETY CHECKS MAINTAINED. 2 PERSON ASSIST WITH ACTIVITIES OF DAILY LIVING, INCONTINENT OF BOWEL AND BLADDER. SET UP FOR MEALS. INTAKES VARIES. PATIENT IN DINING ROOM, RESTING WITH EYES CLOSED IN RAFAL CHAIR. WITHDRAWN. PATIENT IN DINING ROOM FOR ACTIVITIES, DID NOT PARTICIPATE. P: CONTINUE TO MONITOR MOOD, VOICED HALLUCINATIONS, DELUSIONS AND AGGRESSION TOWARDS STAFF. PROVIDE ONE ON ONE, REDIRECTION AND SPACE NEEDED.
--- NOTE | 2019-02-28 11:47 | NUR ---
AM GROUP PT WAS PRESENT FOR MORNING GROUP THERAPY AND WAS YELLING OUT AND HAVING PARANOID DELUSIONS. PT STATED, "THEY ARE GOING TO KILL ME HERE" "THIS BUILDING IS GOING TO CAVE IN" "YOU ARE HURTING ME", ETC. PT COULD NOT BE REDIRECTED.
--- NOTE | 2019-02-28 14:23 | NUR ---
LUCIEEVERT MOODY Ester [id number] Please refer to the physician's history and physical for past medical history, comorbid conditions, and allergies. Diagnosis: INTERMITTENT EXPLOSIVE DISORDER Ezequiel Score: 15,AT RISK WOUND DESCRIPTIONS: Wound Number: 4 ( new skin impairment ) Location of the wound: left forearm Type of wound: skin tear Thickness: Partial Size: 0.6cm x 1.2cm x 0.1cm Tunneling: none Undermining: none Sinus Tract: none Presence of Exudate: Serosanguineous Amount: Light Color: Red Odor: None Periwound Skin Appearance: Normal Wound edges: approximated Pain (associated with wound): none at time of assessment How does patient state this happened? pt state he bumped it this morning Surface the patient is resting on: Position Pro SKIN PREVENTION RECOMMENDATION: 1. Pressure redistribution support surface as appropriate 2. Elevate heels 3. Remove boots/TEDS every shift and reapply 4. Head of bed 30 degrees as tolerated 5. Assess nutrition and hydration 6. Manage moisture 7. Avoid the use of containment devices while in bed 8. Use absorptive products on surfaces limit layers of linens on bed 9. Turn and reposition every 1-2 hours in bed and every 1 hour in chair as tolerated 10. Weight shifts every 15 minutes while up in chair 11. Offloading with pillows or device to keep heels elevated off bed 12. Monitor skin at least every shift 13. Inspect under medical devices twice a day WOUND TREATMENT RECOMMENDATIONS: Continue current skin tear orders.
--- NOTE | 2019-02-28 14:56 | NUR ---
EVERT MITCHELL [id number] Please refer to the physician's history and physical for past medical history, comorbid conditions, and allergies. Diagnosis: INTERMITTENT EXPLOSIVE DISORDER Ezequiel Score: 15,AT RISK WOUND DESCRIPTIONS: Wound Number: 1 Location of the wound: right posterior calf Thickness: Full Size: 1.0cm x 1.2cm x 0.1cm Tunneling: none Undermining: none Sinus Tract: none Presence of Exudate: none Amount: none Color: Brown, red Odor: None Periwound Skin Appearance: Erythema Wound edges: approximated Pain (associated with wound): none at time of assessment How does patient state this happened? pt unable to state how this happened Wound Number: 2 Location of the wound: left lower leg Type of wound: skin tear Thickness: Partial Size: 2.4cm x 1.5cm x 0.1cm Tunneling: none Undermining: none Sinus Tract: none Presence of Exudate: Serosanguineous Amount: Light Color: Red Odor: None Periwound Skin Appearance: Normal Wound edges: approximated Pain (associated with wound): denied at time of assessment How does patient state this happened? patient unsure how this happened. If wound is on legs/feet or hands, capillary refill time, pulses, color temp, sensation: cap refill < 3 seconds. Surface the patient is resting on: Proform SKIN PREVENTION RECOMMENDATION: 1. Pressure redistribution support surface as appropriate 2. Elevate heels 3. Remove boots/TEDS every shift and reapply 4. Head of bed 30 degrees as tolerated 5. Assess nutrition and hydration 6. Manage moisture 7. Avoid the use of containment devices while in bed 8. Use absorptive products on surfaces limit layers of linens on bed 9. Turn and reposition every 1-2 hours in bed and every 1 hour in chair as tolerated 10. Weight shifts every 15 minutes while up in chair 11. Offloading with pillows or device to keep heels elevated off bed 12. Monitor skin at least every shift 13. Inspect under medical devices twice a day WOUND TREATMENT RECOMMENDATIONS: Continue skin tear guidelines per physician order.
--- NOTE | 2019-02-28 15:36 | NUR ---
PM GROUP PT WAS PRESENT FOR AFTERNOON GROUP THERAPY SLEEPING RECLINED IN A RAFAL CHAIR. PT DID NOT WAKE DURING GROUP
--- NOTE | 2019-02-28 16:18 | NUR ---
Shift chart check completed.
--- NOTE | 2019-02-28 16:19 | NUR ---
PATIENT BOWEL SOUNDS ACTIVE X 4; PATIENT ASSISTED TO BATHROOM FOR TOILETING NEEDS. PATIENT HAD A SMALL BM. OFFERED PATIENT PRUNE JUICE BUT DECLINED.
[2019-02-28 19:40] VITALS: BP 141/81
--- NOTE | 2019-02-28 22:30 | NUR ---
P-CONFUSION. PATIIENT WITH SHORT TERM AND PICK UP MAN MEMORY DEFICITS I-REDIRECTION WITH 1:1 THERAPEUTIC INTERVENTIONS AND PRESENT REALITY. EDUCATE AND ENCOURAGE MEDICATION COMPLIANCE R-REDIRECTION AND PRESENT REALITY EFFECTIVE FOR SHORT PERIODS OF TIME THROUGHOUT SHIFT. DIFFULTY WITH PATIENT TAKING MEDICAITONS AT . P-CONTINUE TO PRESENT REALITY, CONTINUE TO ENCOURAGE MEDICATION COMPLIANCE, ENCOURAGE GROUP THERAPY WHILE AWAKE
--- NOTE | 2019-03-01 06:11 | NUR ---
24 HR chart check completed.
[2019-03-01 07:44] VITALS: BP 124/63
--- NOTE | 2019-03-01 08:30 | NUR ---
Treatment Plan meeting with Dr. Oconnor, RN, AT, and Power Switchboard Operator. Plan for discharge Tuesday. Pt. will return to [place].
--- NOTE | 2019-03-01 11:47 | NUR ---
AM GROUP PT ATTENDED AND PARTICIPATED IN MORNING GROUP THERAPY UNTIL SHE FELL ASLEEP IN [employer] CHAIR. PT WAS QUIET AND SEEMED LESS CONFUSED THIS MORNING. PT EXHIBITED NO AGITATION OR AGGRESSION IN GROUP
--- NOTE | 2019-03-01 15:42 | NUR ---
PM GROUP/MOVIE AND CRAFTS PT WAS PRESENT FOR AFTERNOON GROUP THERAPY RECLINED IN A [employer] CHAIR SLEEPING. PT DID NOT WAKE DURING GROUP
[2019-03-01 19:53] VITALS: BP 133/60
--- NOTE | 2019-03-01 23:35 | NUR ---
P-CONFUSION. 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 PATIENT WITH NO SUICIDAL OR HOMICIDAL IDEATIONS. I-REDIRECTION WITH 1:1 THERAPEUTIC INTERVENTIONS AND PRESENT REALITY. EDUCATE AND ENCOURAGE MEDICATION COMPLIANCE R-REDIRECTION AND PRESENT REALITY EFFECTIVE FOR SHORT PERIODS OF TIME THROUGHOUT SHIFT. DIFFULTY WITH PATIENT TAKING MEDICAITONS AT . P-CONTINUE TO PRESENT REALITY, CONTINUE TO ENCOURAGE MEDICATION COMPLIANCE, ENCOURAGE GROUP THERAPY WHILE AWAKE
--- NOTE | 2019-03-02 05:49 | NUR ---
24 HR chart check completed.
--- NOTE | 2019-03-02 06:00 | NUR ---
PATIENT SLEPT 7-8 HOURS OF THROUGHOUT SHIFT. Q 15 MINUTE CHECKS MAINTAINED
[2019-03-02 08:16] VITALS: BP 145/67
--- NOTE | 2019-03-02 08:30 | NUR ---
Treatment Plan meeting with Dr. Oconnor, RN, AT, and [facility]. Plan for discharge today. Pt. will discharge to [facility]. Call placed to niyah Augustus and notified of discharge today. Also spoke with Saumya Souza at [facility] and notified of discharge.
[2019-03-02] MEDS ORDERED: RIVASTIGMINE TAR3 M1 PO (09:36)
[2019-03-02] MEDS ORDERED: LACTULOSE20 GM/30 M PO (09:36)
[2019-03-02] MEDS ORDERED: RISPERDAL CON12.5 MG IM (09:36)
[2019-03-02] MEDS ORDERED: ROZEREM8 MG PO (09:36)
[2019-03-02] MEDS ORDERED: CIPRO250 MG PO (10:41)
[2019-03-02] MEDS ORDERED: FLUCONAZOLE100 MG PO (10:41)
--- NOTE | 2019-03-02 10:47 | NUR ---
Discharge Paperwork and therapy Notes faxed to Pa.
--- NOTE | 2019-03-02 12:02 | NUR ---
PT WITH [facility] OFF UNIT AT THIS TIME. NURSE TO NURSE CALLED TO [facility] AT [facility]. ALL BELONGINGS SENT WITH PT.
== END 2019-03-02 12:04 | disposition other institution (70) | DRG 883 ==
LOC: 3N 09:44
PROVIDERS: Registered Nurse; Student in an Organized Health Care Education/Training Program; ADMIT Psychiatry & Neurology Psychiatry
DX: F63.81 Intermittent explosive disorder (principal); F23 Brief psychotic disorder; N30.01 Acute cystitis with hematuria; F01.51 Vascular dementia, unspecified severity, with behavioral disturbance; G40.209 Localization-related (focal) (partial) symptomatic epilepsy and epileptic syndromes with complex partial seizures, not intractable, without status epilepticus; I45.10 Unspecified right bundle-branch block; I25.10 Atherosclerotic heart disease of native coronary artery without angina pectoris; I10 Essential (primary) hypertension; E11.65 Type 2 diabetes mellitus with hyperglycemia; K59.01 Slow transit constipation; M48.07 Spinal stenosis, lumbosacral region; M54.5 Low back pain; G89.29 Other chronic pain; I25.2 Old myocardial infarction; Z88.8 Allergy status to other drugs, medicaments and biological substances; Z91.040 Latex allergy status; Z95.1 Presence of aortocoronary bypass graft; Z95.0 Presence of cardiac pacemaker; Z90.710 Acquired absence of both cervix and uterus; Z90.79 Acquired absence of other genital organ(s); Z90.722 Acquired absence of ovaries, bilateral; Z84.89 Family history of other specified conditions; Z79.84 Long term (current) use of oral hypoglycemic drugs; Z79.82 Long term (current) use of aspirin; Z79.899 Other long term (current) drug therapy